=== PATIENT | male | born 1955 | race Hispanic/Latino ===

== ENCOUNTER 2019-07-11 04:55 | Inpatient (IN) | payer OTHER ==
[2019-07-11 05:58] LABS: Basophils % (Auto) 0.4 % (0.0-1.8); Eosinophils % (Auto) 0.4 % (0.0-4.3); Hematocrit 26.8 % (35.5-45.6); Hemoglobin 9.1 gm/dl (11.8-15.2); Lymphocytes # (Auto) 0.8 K/mm3 (1.2-5.4); Lymphocytes % (Auto) 10.1 % (13.4-35.0); Mean Corpuscular HGB Conc 34 % (32-34); Mean Corpuscular Volume 87 fl (84-94); Monocytes # (Auto) 0.5 K/mm3 (0.0-0.8); Monocytes % (Auto) 6.3 % (0.0-7.3); Platelet Count 418 K/mm3 (140-440); Red Blood Count 3.07 M/mm3 (3.65-5.03); Red Cell Distribution Width 14.7 % (13.2-15.2)
[2019-07-11 07:32] LABS: BUN/Creatinine Ratio 22; Blood Urea Nitrogen 13 mg/dL (9-20); Calcium 7.9 mg/dL (8.4-10.2); Hemolysis Index 2
[2019-07-11] MEDS ORDERED: NACL 0.9% 500 ML 500 ML IV ONE (08:46)
[2019-07-11] MEDS ORDERED: MORPHINE IV ONE (08:46)
[2019-07-11] MEDS ORDERED: CLEOCIN 600 MG/50 mL 600 MG/50 ML BAG IV ONE (08:46)
--- NOTE | 2019-07-11 08:48 | Emergency Department Report ---
ED General Adult HPI - General Chief complaint: Skin Rash Stated complaint: BACK PAIN/RASH X 2WKS Time Seen by Provider: 07/11/19 07:42 Source: patient, EMS (ems notes not available at time of chart dictation), RN notes reviewed, old records reviewed Mode of arrival: Stretcher Limitations: No Limitations - History of Present Illness Initial comments: This is a 63-year-old gentleman. I have evaluated this patient in the past. Please see my note from 06/28/2019. The patient presents to the ER today with complaint of worsening bilateral lower extremity rash, lower extremity pain, malaise, fatigue, and persistent left-sided sacroiliac pain. He denies hematemesis and bright red blood per rectum. He believes he's been coughing up some blood occasionally. He denies dysuria. His lower extremity pain is sharp and throbbing, aching, increases with palpation and decreases with rest. There is no abdominal pain. He feels like his symptoms are getting worse. -: Gradual, week(s) Location: buttocks, left, right, lower extremity Severity scale (0 -10): 10 Quality: aching Consistency: constant Improves with: rest Worsens with: movement - Related Data Previous Rx's Medication Instructions Recorded Last Taken Type Diclofenac Sodium 50 mg PO Q8H PRN #15 tablet. 06/28/19 Unknown Rx Allergies Allergy/AdvReac Type Severity Reaction Status Date / Time No Known Allergies Allergy Unverified 06/28/19 02:43 ED Review of Systems ROS: Stated complaint: BACK PAIN/RASH X 2WKS Other details as noted in HPI Constitutional: fever (patient questions fever, although, he is not sure), malaise, weakness Eyes: denies: eye discharge ENT: epistaxis Respiratory: cough Cardiovascular: denies: chest pain Gastrointestinal: denies: hematemesis, melena, hematochezia Genitourinary: denies: dysuria Musculoskeletal: arthralgia, myalgia Skin: rash, lesions Neurological: weakness Psychiatric: anxiety ED Past Medical Hx - Past Medical History Previous Medical History?: No - Surgical History Past Surgical History?: No - Social History Smoking Status: Current Every Day Smoker Substance Use Type: None - Medications Home Medications: Home Medications Medication Instructions Recorded Confirmed Last Taken Type Diclofenac Sodium 50 mg PO Q8H PRN #15 tablet. 06/28/19 Unknown Rx ED Physical Exam - General Limitations: No Limitations General appearance: alert, anxious, in distress - Head Head exam: Present: atraumatic, normocephalic - Eye Eye exam: Present: normal appearance, EOMI. Absent: nystagmus - ENT ENT exam: Present: normal exam, normal orophraynx, mucous membranes moist, normal external ear exam - Neck Neck exam: Present: normal inspection, full ROM. Absent: tenderness, meningismus - Respiratory Respiratory exam: Present: normal lung sounds bilaterally. Absent: respiratory distress - Cardiovascular Cardiovascular Exam: Present: regular rate, normal rhythm, normal heart sounds. Absent: bradycardia, tachycardia, irregular rhythm, systolic murmur, diastolic murmur, rubs, gallop - GI/Abdominal GI/Abdominal exam: Present: soft. Absent: distended, tenderness, guarding, rebound, rigid, pulsatile mass - Rectal Rectal exam: Present: normal inspection, normal rectal tone, heme (-) stool, other (chaperoned by nurse Lou Bello). Absent: black stool, bloody stool, fecal impaction - Extremities Exam Extremities exam: Present: tenderness, other (2+ pulses noted in the bilateral upper, lower extremities. The muscular compartments are soft. The pelvis is stable. There is reproducible left-sided sacroiliac joint tenderness. Multiple excoriated tender lesions noted on the bilateral lower extremities. These are tender and nonblanching. There is some surrounding erythema. There is lower extremity edema noted.). Absent: normal inspection - Back Exam Back exam: Present: normal inspection, full ROM, paraspinal tenderness - Neurological Exam Neurological exam: Present: alert, other (Extraocular movements intact. Tongue midline. No facial droop. Facial sensation intact to light touch in the V1, V2, V3 distribution bilaterally. 5 and 5 strength in 4 extremities.. Sensation is intact to light touch in 4 extremities.) - Psychiatric Psychiatric exam: Present: anxious - Skin Skin exam: Present: warm, rash, erythema ED Course Vital Signs 07/11/19 07/11/19 07/11/19 05:17 06:08 06:16 Temperature 98.9 F Pulse Rate 93 H 90 Respiratory 20 20 20 Rate Blood Pressure 101/58 Blood Pressure 98/58 [Right] O2 Sat by Pulse 94 94 96 Oximetry 07/11/19 07/11/19 08:16 08:47 Temperature 98.1 F 99.9 F H Pulse Rate 90 Respiratory 17 Rate Blood Pressure Blood Pressure 103/57 [Right] O2 Sat by Pulse 97 Oximetry ED Medical Decision Making - Lab Data Result diagrams: 07/11/19 05:39 07/11/19 05:39 Vital Signs 07/11/19 07/11/19 07/11/19 05:17 06:08 06:16 Temperature 98.9 F Pulse Rate 93 H 90 Respiratory 20 20 20 Rate Blood Pressure 101/58 Blood Pressure 98/58 [Right] O2 Sat by Pulse 94 94 96 Oximetry 07/11/19 07/11/19 08:16 08:47 Temperature 98.1 F 99.9 F H Pulse Rate 90 Respiratory 17 Rate Blood Pressure Blood Pressure 103/57 [Right] O2 Sat by Pulse 97 Oximetry Lab Results 07/11/19 07/11/19 Range/Units 05:39 05:39 WBC 7.7 (4.5-11.0) K/mm3 RBC 3.07 L (3.65-5.03) M/mm3 Hgb 9.1 L (11.8-15.2) gm/dl Hct 26.8 L (35.5-45.6) % MCV 87 (84-94) fl MCH 30 (28-32) pg MCHC 34 (32-34) % RDW 14.7 (13.2-15.2) % Plt Count 418 (140-440) K/mm3 Lymph % (Auto) 10.1 L (13.4-35.0) % [place] % (Auto) 6.3 (0.0-7.3) % Eos % (Auto) 0.4 (0.0-4.3) % Baso % (Auto) 0.4 (0.0-1.8) % Lymph # 0.8 L (1.2-5.4) K/mm3 [place] # 0.5 (0.0-0.8) K/mm3 Eos # 0.0 (0.0-0.4) K/mm3 Baso # 0.0 (0.0-0.1) K/mm3 Seg Neutrophils % 82.8 H (40.0-70.0) % Seg Neutrophils # 6.4 (1.8-7.7) K/mm3 Sodium 129 L (137-145) mmol/L Potassium 4.0 (3.6-5.0) mmol/L Chloride 94.7 L (98-107) mmol/L Carbon Dioxide 24 (22-30) mmol/L Anion Gap 14 mmol/L BUN 13 (9-20) mg/dL Creatinine 0.6 L (0.8-1.5) mg/dL Estimated GFR > 60 ml/min BUN/Creatinine Ratio 22 % Glucose 119 H (75-100) mg/dL Calcium 7.9 L (8.4-10.2) mg/dL - EKG Data -: EKG Interpreted by Ga EKG shows normal: sinus rhythm Rate: normal - EKG Data 07/11/19 09:47 There is no prior EKG available for comparison. This is a sinus rhythm, with premature ventricular complex, there is low voltage, the QTC is within normal l imits, there appears to be a sinus polyp, this EKG is abnormal, there is no prior for comparison, the EKG is not consistent with ST elevation myocardial infarction. - Radiology Data Radiology results: report reviewed, image reviewed Print Report Referring Physician: FRANCIA JOLLY Patient Name: LUCRETIA BROWN Date of : 1955 Sex: Male Report Date: 2019-07-11 Report Status: Finalized Findings [facility] [address] [place] [address] XRay Report Signed Patient: LUCRETIA BROWN MR#: [id number] 6 : 1955 Acct:[id number] Age/Sex: 63 / M ADM Date: 07/11/19 Loc: ED Attending Dr: Ordering Physician: FRANCIA JOLLY MD Date of Service: 07/11/19 Procedure(s): XR chest 1V ap Accession Number(s): [id number] cc: FRANCIA JOLLY MD Fluoro Time In Minutes: CHEST 1 VIEW INDICATION: hemoptysis. COMPARISON: 06/28/2019 FINDINGS: Support devices: None. Heart: Within normal limits. Lungs/Pleura: Minor discoid atelectasis has developed at the lung bases, otherwise, the lungs are clear. No pleural effusion or pneumothorax. Additional findings: None. IMPRESSION: No acute findings. Minor bibasilar atelectatic changes. Signer Name: Yehuda King Jr, MD Signed: 07/11/2019 8:59 AM Workstation Name: [id number] Transcribed By: TTR Dictated By: YEHUDA KING JR, MD Electronically Authenticated By: YEHUDA KING JR, MD Signed Date/Time: 07/11/19858 D D/ 7 TD/TT: - Medical Decision Making Differential diagnosis, including not limited to: Vasculitis, connective tissue disease, lupus Assessment and plan: 63-year-old gentleman, with persistent and worsening tender nonblanching bilateral lower extremity rash, there may be a component of superinfection, low-grade temperature, resolved hypotension, now with decreasing hemoglobin, hematocrit, no obvious source of bleeding, and also hyponatremia. Concerning for systemic illness, such as rheumatologic condition versus vasculitis. We will treat with IV fluids, pain medicine, steroids, empiric antibiotic therapy. Has appropriate pulses in the lower extremities, therefore, clinically do not suspect arterial insufficiency, or DVT, but we will obtain dedicated ultrasound imaging of the bilateral lower extremity's. X-ray of the chest is unremarkable. Additional appropriate inpatient screening laboratory studies ordered, and we will defer to inpatient team to follow these up. Case will be transferred to Hospital physician, Dr. Bowie, and we will defer to her to follow-up on the additional laboratory studies. Critical care attestation.: If time is entered above; I have spent that time in minutes in the direct care of this critically ill patient, excluding procedure time. ED Disposition Clinical Impression: Vasculitis, Hyponatremia, Rash Disposition: OP ADMIT IP TO THIS HOSP Is pt being admited?: Yes Condition: Fair Referrals: PRIMARY CARE, [Primary Care Provider] - 3-5 Days
--- NOTE | 2019-07-11 09:03 | XRay Report ---
CHEST 1 VIEW INDICATION: hemoptysis. COMPARISON: 06/28/2019 FINDINGS: Support devices: None. Heart: Within normal limits. Lungs/Pleura: Minor discoid atelectasis has developed at the lung bases, otherwise, the lungs are cehly ar. No pleural effusion or pneumothorax. Additional findings: None. IMPRESSION: No acute findings. Minor bibasilar atelectatic changes. Signer Name: Yehuda King Jr, MD Signed: 07/11/2019 8:59 AM Workstation Name: [id number]
[2019-07-11] MEDS ORDERED: SOLU-Medrol IV ONE (09:27)
[2019-07-11 09:53] LABS: INR 1.22 (0.87-1.13)
[2019-07-11 09:54] LABS: Partial Thromboplastin Time 34.5 Sec. (24.2-36.6)
[2019-07-11 09:56] LABS: Bilirubin,Urine NEG (Negative); Blood,Urine LG (Negative); Color,Urine Yellow (Yellow); Mucus,Urine FEW /HPF; Urobilinogen,Urine < 2.0 mg/dL (<2.0)
[2019-07-11 09:59] LABS: RBC,Urine > 182.0 /HPF (0.0-6.0)
[2019-07-11 11:26] LABS: Alanine Aminotransferase 13 units/L (7-56); Albumin 2.6 g/dL (3.9-5); Uric Acid 3.8 mg/dL (3.5-7.6)
[2019-07-11 11:29] LABS: Bilirubin,Direct < 0.2 mg/dL (0-0.2)
--- NOTE | 2019-07-11 12:58 | Vascular Lab Report ---
DUPLEX DOPPLER LOWER EXTREMITY VEINS, BILATERAL INDICATION / CLINICAL INFORMATION: Bilateral lower extremity pain. TECHNIQUE: Duplex doppler imaging was performed through the veins of both lower extremities using venous endy nora and other maneuvers. COMPARISON: None available. FINDINGS: RIGHT COMMON FEMORAL VEIN: Negative. RIGHT FEMORAL VEIN: Negative. RIGHT POPLITEAL VEIN: Negative. RIGHT CALF VEINS: Negative. LEFT COMMON FEMORAL VEIN: Negative. LEFT FEMORAL VEIN: Negative. LEFT POPLITEAL VEIN: Negative. LEFT CALF VEINS: Negative. ADDITIONAL FINDINGS: None. IMPRESSION: 1. No sonographic evidence for DVT in either lower extremity. Signer Name: Manolo Viramontes MD Signed: 07/11/2019 12:54 PM Workstation Name: [id number]
--- NOTE | 2019-07-11 13:01 | Vascular Lab Report ---
DUPLEX DOPPLER LOWER EXTREMITY ARTERIAL, BILATERAL INDICATION / CLINICAL INFORMATION: Bilateral lower extremity pain. TECHNIQUE: Arterial duplex examination of both lower extremities performed using B-mode, color flow and spectral Doppler assessment. FINDINGS: RIGHT: Common Femoral Artery: PSV 131 cm/sec. Triphasic waveform. Proximal SFA: PSV 86 cm/sec. Triphasic waveform. Mid SFA: PSV 89 cm/sec. Triphasic waveform. Distal SFA: PSV 85 cm/sec. Triphasic waveform. Popliteal artery: PSV 93 cm/sec. Triphasic waveform. Posterior tibial artery: PSV 73 cm/sec. Triphasic waveform. Dorsalis Pedis Artery: PSV 74 cm/sec. Biphasic waveform. LEFT: Common Femoral Artery: PSV 102 cm/sec. Triphasic waveform. Proximal SFA: PSV 70 cm/sec. Triphasic waveform. Mid SFA: PSV 86 cm/sec. Triphasic waveform. Distal SFA: PSV 82 cm/sec. Triphasic waveform. Popliteal artery: PSV 96 cm/sec. Triphasic waveform. Posterior tibial artery: PSV 77 cm/sec. Biphasic waveform. Dorsalis Pedis Artery: PSV 82 cm/sec. Triphasic waveform. Right CLARE: Not obtained Left CLARE: Not obtained IMPRESSION: 1. No significant lower extremity peripheral artery disease. Ankle-Brachial Index (CLARE): - Calcified arteries > 1.4 - Normal = 0.9-1.4 - Mild PAD = 0.7-0.89 - Moderate PAD = 0.51-0.69 - Severe PAD < 0.5 Doppler Waveform: - Triphasic is normal. - Biphasic is abnormal if clear transition from triphasic signal along vascular tree. - Monophasic is abnormal. Signer Name: Manolo Viramontes MD Signed: 07/11/2019 12:56 PM Workstation Name: [email or web address] [id number]
--- NOTE | 2019-07-11 13:29 | History and Physical Report ---
History of Present Illness Date of examination: 07/11/19 Date of admission: 07/11/19 09:52 Chief complaint: Low back pain and generalized body rash mainly, lower extremity for the last 2 weeks History of present illness: 63-year-old male patient with significant past medical history of chronic low back pain not on any medications presented to the emergency room with history of low back pain. Pain, generalized rash mainly in the lower extremity for the last 2 weeks. Patient also complains intermittent fevers Patient took some ewmy-kfu-rlewatc medications with no response Patient denies any chest pain or shortness of breath, Denies headache or dizzi ness. Complaints of mild cough and congestion No urinary symptoms, Pain in the Lower extremities , venous Doppler negative for DVT Past History Past Medical History: other (chronic pain syndrome) Past Surgical History: appendectomy Social history: lives with family, smoking, alcohol abuse Family history: hypertension Medications and Allergies Allergies Allergy/AdvReac Type Severity Reaction Status Date / Time No Known Allergies Allergy Verified 07/11/19 13:50 Home Medications Medication Instructions Recorded Confirmed Last Taken Type No Known Home Medications [No 07/11/19 07/11/19 Unknown History Reported Home Medications] Review of Systems Constitutional: no weight loss, no weight gain Ears, nose, mouth and throat: no nasal congestion, no nasal discharge Cardiovascular: no chest pain, no orthopnea, no palpitations Respiratory: cough, no shortness of breath Gastrointestinal: no abdominal pain, no nausea, no vomiting Genitourinary Male: no dysuria, no hematuria Musculoskeletal: low back pain, other (hip pain) Integumentary: rash, lesions Neurological: no seizures, no syncope, no tremors Psychiatric: no anxiety, no depression Endocrine: no cold intolerance, no heat intolerance Hematologic/Lymphatic: no easy bruising, no easy bleeding Allergic/Immunologic: no urticaria, no allergic rhinitis Exam - Constitutional Vitals: Temp Pulse Resp BP Pulse Ox 98.8 F 86 20 105/68 99 07/11/19 11:47 07/11/19 11:47 07/11/19 11:47 07/11/19 11:47 07/11/19 11:47 General appearance: Present: mild distress, well-nourished - EENT Eyes: Present: PERRL, EOM intact - Neck Neck: Present: supple, normal ROM - Respiratory Respiratory effort: normal Respiratory: bilateral: diminished, negative: rales, rhonchi, wheezing - Cardiovascular Rhythm: regular Heart Sounds: Present: S1 & S2 - Extremities Extremities: no ischemia, No edema, abnormal ( Erythematous rash on her lower extremities) - Abdominal General gastrointestinal: Present: soft, non-tender, non-distended, normal bowel sounds - Integumentary Integumentary: Present: clear, warm, rash - Musculoskeletal Musculoskeletal: strength equal bilaterally, generalized weakness - Psychiatric Psychiatric: appropriate mood/affect, cooperative - Neurologic Neurologic: CNII-XII intact, moves all extremities Results - Labs CBC & Chem 7: 07/11/19 05:39 07/11/19 05:39 Labs: Abnormal lab results 07/11/19 07/11/19 07/11/19 Range/Units 05:39 05:39 09:02 RBC 3.07 L (3.65-5.03) M/mm3 Hgb 9.1 L (11.8-15.2) gm/dl Hct 26.8 L (35.5-45.6) % Lymph % (Auto) 10.1 L (13.4-35.0) % Lymph # 0.8 L (1.2-5.4) K/mm3 Seg Neutrophils % 82.8 H (40.0-70.0) % PT 15.1 H (12.2-14.9) Sec. INR 1.22 H (0.87-1.13) Sodium 129 L (137-145) mmol/L Chloride 94.7 L (98-107) mmol/L Creatinine 0.6 L (0.8-1.5) mg/dL Glucose 119 H (75-100) mg/dL Calcium 7.9 L (8.4-10.2) mg/dL Total Creatine Kinase (55-170) units/L C-Reactive Protein (0.00-1.30) mg/dL Albumin (3.9-5) g/dL Urine Creatinine (0.1-20.0) mg/dL 07/11/19 07/11/19 Range/Units 09:02 Unknown RBC (3.65-5.03) M/mm3 Hgb (11.8-15.2) gm/dl Hct (35.5-45.6) % Lymph % (Auto) (13.4-35.0) % Lymph # (1.2-5.4) K/mm3 Seg Neutrophils % (40.0-70.0) % PT (12.2-14.9) Sec. INR (0.87-1.13) Sodium (137-145) mmol/L Chloride (98-107) mmol/L Creatinine (0.8-1.5) mg/dL Glucose (75-100) mg/dL Calcium (8.4-10.2) mg/dL Total Creatine Kinase 53 L (55-170) units/L C-Reactive Protein 16.50 H (0.00-1.30) mg/dL Albumin 2.6 L (3.9-5) g/dL Urine Creatinine 70.0 H (0.1-20.0) mg/dL Assessment and Plan --Febrile illness; rule out sepsis Antipyretics, IV fluids, empiric antibiotics Urine and blood cultures --Rash all over the body mainly in the lower extremities; Patient has back pain/fever and rash Possible autoimmune, vasculitis Steroids, antihistamines, ID consult VIKY,ANCA, complement 3 and 4 requested --Hyponatremia; IV hydration Closely monitor electrolytes --Chronic lower back and hip pain; X-rays revealed no acute abnormality noted Pain meds, physical therapy occupational therapy --Chronic pain syndrome; supportive care and pain medications --Moderate to severe malnutrition/hypoalbuminemia Nutrition supplements and supportive care --DVT prophylaxis; Lovenox Monitor clinically and adjust the management as needed Plan of care is reviewed with the patient fiance at the bedside And his nurse
[2019-07-11] MEDS: SOLU-Medrol IV SCH ×2 (16:01→21:01)
[2019-07-11] MEDS: NACL 0.9% 1000 ML 1,000 ML IV SCH (20:57)
[2019-07-11] MEDS ORDERED: TYLENOL PO PRN (21:00)
[2019-07-11] MEDS: LOVENOX SUB-Q SCH (21:01)
[2019-07-11] MEDS: CLEOCIN PO SCH (21:01)
[2019-07-11] MEDS ORDERED: MAXIPIME/NS 1 GM/100 ML 1 GM/100 ML BAG IV SCH (22:00)
[2019-07-12 05:26] LABS: Basophils % (Auto) 0.1 % (0.0-1.8); Hematocrit 29.7 % (35.5-45.6); Hemoglobin 10.1 gm/dl (11.8-15.2); Lymphocytes # (Auto) 0.7 K/mm3 (1.2-5.4); Lymphocytes % (Auto) 12.5 % (13.4-35.0); Mean Corpuscular HGB Conc 34 % (32-34); Mean Corpuscular Volume 87 fl (84-94); Monocytes # (Auto) 0.1 K/mm3 (0.0-0.8); Monocytes % (Auto) 2.5 % (0.0-7.3); Platelet Count 492 K/mm3 (140-440); Red Blood Count 3.41 M/mm3 (3.65-5.03); Red Cell Distribution Width 14.4 % (13.2-15.2)
[2019-07-12 05:39] LABS: BUN/Creatinine Ratio 27; Blood Urea Nitrogen 16 mg/dL (9-20); Hemolysis Index 4
[2019-07-12] MEDS: SOLU-Medrol IV SCH ×3 (06:04→21:20)
[2019-07-12] MEDS: CLEOCIN PO SCH ×4 (09:37→21:20)
[2019-07-12] MEDS: PROTONIX PO SCH (09:37)
--- NOTE | 2019-07-12 11:47 | Progress Note ---
Assessment and Plan Assessment and plan: --SIRS :Febrile illness; rule out sepsis Antipyretics, IV fluids, empiric antibiotics Urine and blood cultures --Rash all over the body mainly in the lower extremities; Patient has back pain/fever and rash Possible autoimmune, vasculitis Steroids, antihistamines, ID consult VIKY,ANCA, complement 3 and 4 requested --Hyponatremia; IV hydration Mild improvement Closely monitor electrolytes --Chronic lower back and hip pain; X-rays revealed no acute abnormality noted Pain meds, physical therapy occupational therapy --Chronic pain syndrome; supportive care and pain medications --Moderate to severe malnutrition/hypoalbuminemia Nutrition supplements and supportive care --DVT prophylaxis; Lovenox Monitor clinically and adjust the management as needed Plan of care is reviewed with the patient fiance at the bedside And his nurse History Interval history: Patient seen and examined medical records reviewed Intermittent fevers, back pain Complaints of generalized weakness, mild hypertension Alert awake oriented 3, Vital signs reviewed Hospitalist Physical - Constitutional Vitals: Temp Pulse Resp BP Pulse Ox 97.7 F 72 16 82/51 97 07/12/19 05:16 07/11/19 21:35 07/12/19 05:16 07/12/19 05:16 07/11/19 21:35 General appearance: Present: no acute distress, well-nourished - EENT Eyes: Present: PERRL, EOM intact - Neck Neck: Present: supple, normal ROM - Respiratory Respiratory effort: normal Respiratory: bilateral: diminished, negative: rales, rhonchi, wheezing - Cardiovascular Rhythm: regular Heart Sounds: Present: S1 & S2 - Extremities Extremities: no ischemia, abnormal (rash lower extremities) - Abdominal General gastrointestinal: soft, non-tender, non-distended, normal bowel sounds - Integumentary Integumentary: Present: clear, warm - Psychiatric Psychiatric: appropriate mood/affect, cooperative - Neurologic Neurologic: CNII-XII intact, moves all extremities Results - Labs CBC & Chem 7: 07/12/19 04:27 07/12/19 04:27 Labs: Laboratory Last Values WBC 5.5 K/mm3 (4.5-11.0) 07/12/19 04:27 RBC 3.41 M/mm3 (3.65-5.03) L 07/12/19 04:27 Hgb 10.1 gm/dl (11.8-15.2) L 07/12/19 04:27 Hct 29.7 % (35.5-45.6) L 07/12/19 04:27 MCV 87 fl (84-94) 07/12/19 04:27 MCH 30 pg (28-32) 07/12/19 04:27 MCHC 34 % (32-34) 07/12/19 04:27 RDW 14.4 % (13.2-15.2) 07/12/19 04:27 Plt Count 492 K/mm3 (140-440) H 07/12/19 04:27 Lymph % (Auto) 12.5 % (13.4-35.0) L 07/12/19 04:27 [place] % (Auto) 2.5 % (0.0-7.3) 07/12/19 04:27 Eos % (Auto) 0.0 % (0.0-4.3) 07/12/19 04:27 Baso % (Auto) 0.1 % (0.0-1.8) 07/12/19 04:27 Lymph # 0.7 K/mm3 (1.2-5.4) L 07/12/19 04:27 [place] # 0.1 K/mm3 (0.0-0.8) 07/12/19 04:27 Eos # 0.0 K/mm3 (0.0-0.4) 07/12/19 04:27 Baso # 0.0 K/mm3 (0.0-0.1) 07/12/19 04:27 Seg Neutrophils % 84.9 % (40.0-70.0) H 07/12/19 04:27 Seg Neutrophils # 4.7 K/mm3 (1.8-7.7) 07/12/19 04:27 ESR 71 mm/Hr (0-20) 07/11/19 09:02 PT 15.1 Sec. (12.2-14.9) H 07/11/19 09:02 INR 1.22 (0.87-1.13) H 07/11/19 09:02 APTT 34.5 Sec. (24.2-36.6) 07/11/19 09:02 Sodium 132 mmol/L (137-145) L 07/12/19 04:27 Potassium 3.8 mmol/L (3.6-5.0) 07/12/19 04:27 Chloride 96.9 mmol/L (98-107) L 07/12/19 04:27 Carbon Dioxide 26 mmol/L (22-30) 07/12/19 04:27 Anion Gap 13 mmol/L 07/12/19 04:27 BUN 16 mg/dL (9-20) 07/12/19 04:27 Creatinine 0.6 mg/dL (0.8-1.5) L 07/12/19 04:27 Estimated GFR > 60 ml/min 07/12/19 04:27 BUN/Creatinine Ratio 27 % 07/12/19 04:27 Glucose 238 mg/dL (75-100) H 07/12/19 04:27 Lactic Acid 0.80 mmol/L (0.7-2.0) 07/11/19 09:02 Uric Acid 3.8 mg/dL (3.5-7.6) 07/11/19 09:02 Calcium 8.0 mg/dL (8.4-10.2) L 07/12/19 04:27 Magnesium 2.20 mg/dL (1.7-2.3) 07/12/19 04:27 Total Bilirubin 0.30 mg/dL (0.1-1.2) 07/11/19 09:02 Direct Bilirubin < 0.2 mg/dL (0-0.2) 07/11/19 09:02 Indirect Bilirubin 0.1 mg/dL 07/11/19 09:02 AST 23 units/L (5-40) 07/11/19 09:02 ALT 13 units/L (7-56) 07/11/19 09:02 Alkaline Phosphatase 105 units/L (35-129) 07/11/19 09:02 Total Creatine Kinase 53 units/L (55-170) L 07/11/19 09:02 Troponin T < 0.010 ng/mL (0.00-0.029) 07/11/19 09:02 C-Reactive Protein 16.50 mg/dL (0.00-1.30) H 07/11/19 09:02 Total Protein 7.0 g/dL (6.3-8.2) 07/11/19 09:02 Albumin 2.6 g/dL (3.9-5) L 07/11/19 09:02 Albumin/Globulin Ratio 0.6 % 07/11/19 09:02 TSH 1.950 mlU/mL (0.270-4.200) 07/11/19 09:02 Urine Color Yellow (Yellow) 07/11/19 Unknown Urine Turbidity Slightly-cloudy (Clear) 07/11/19 Unknown Urine pH 6.0 (5.0-7.0) 07/11/19 Unknown Ur Specific [place] 1.011 (1.003-1.030) 07/11/19 Unknown Urine Protein 30 mg/dl mg/dL (Negative) 07/11/19 Unknown Urine Glucose (UA) Neg mg/dL (Negative) 07/11/19 Unknown Urine Ketones Neg mg/dL (Negative) 07/11/19 Unknown Urine Blood Lg (Negative) 07/11/19 Unknown Urine Nitrite Neg (Negative) 07/11/19 Unknown Urine Bilirubin Neg (Negative) 07/11/19 Unknown Urine Urobilinogen < 2.0 mg/dL (<2.0) 07/11/19 Unknown Ur Leukocyte Esterase Neg (Negative) 07/11/19 Unknown Urine WBC (Auto) 6.0 /HPF (0.0-6.0) 07/11/19 Unknown Urine RBC (Auto) > 182.0 /HPF (0.0-6.0) 07/11/19 Unknown U Epithel Cells (Auto) < 1.0 /HPF (0-13.0) 07/11/19 Unknown Urine Mucus Few /HPF 07/11/19 Unknown Urine Osmolality 329 Mosm/kg 07/11/19 Unknown Urine Creatinine 70.0 mg/dL (0.1-20.0) H 07/11/19 Unknown Urine Sodium 32 mmol/L 07/11/19 Unknown Active Medications - Current Medications Current Medications: Generic Name Dose Route Start Last Admin Trade Name Freq PRN Reason Stop Dose Admin Acetaminophen 650 mg 07/11/19 21:00 Tylenol PO Q4H PRN Pain, Mild (1-3) Clindamycin HCl 300 mg 07/11/19 22:00 07/12/19 09:37 Cleocin PO 300 mg QID TORITO Administration Diphenhydramine HCl 25 mg 07/11/19 18:34 Benadryl PO Q8H PRN Itching Enoxaparin Sodium 40 mg 07/11/19 22:00 07/11/19 21:01 Lovenox SUB-Q 40 mg QDAY@2200 TORITO Administration Sodium Chloride 1,000 mls @ 100 mls/hr 07/11/19 14:00 07/11/19 20:57 Nacl 0.9% 1000 Ml IV 100 mls/hr DIRECT TORITO Administration Methylprednisolone Sodium Succinate 60 mg 07/11/19 14:00 07/12/19 06:04 Solu-Medrol IV 60 mg Q8HR TORITO Administration Morphine Sulfate 2 mg 07/11/19 21:00 Morphine IV Q4H PRN Pain, Moderate (4-6) Oxycodone/Acetaminophen 1 tab 07/11/19 21:00 Percocet 5/325 PO Q6H PRN Pain, Moderate (4-6) Pantoprazole Sodium 40 mg 07/12/19 10:00 07/12/19 09:37 Protonix PO 40 mg QDAY TORITO Administration
[2019-07-12] MEDS ORDERED: NACL 0.9% 500 ML 500 ML IV ONE (12:00)
--- NOTE | 2019-07-12 12:07 | Consultation ---
History of Present Illness - Reason for Consult Consult date: 07/12/19 - History of Present Illness 63 yo M PMhx oneyda presented to the hosptial for an acute worsening of his chronic lower back pain. He also complains of a rash in his lower extremities which has been present for the past 2 weeks. He complains of intermittent subjective fevers during this time as well. He otherwise denies chills, night sweats, diarrhea, nausea, vomiting. The rash is painful, and a Doppler was negative for DVT in the legs. He was recently evaluated for similar symptoms and dicharged as a rash. He notes the symptoms began with a purpuric discoloration diffusely across his lower body inclusive of his legs, feet, and buttocks. The purpuric changes resolved over time but eventually ulcerated to wind up as what we see today. he notes significant pain on palpation, even light touch. He complains of fevers, L hip pain as well. He has no exposure to natural bodies of water, no recent travel. Denies tick or insect bites, but was recently working underneath their house. Febrile on admission to 102.1. Currently receiving clindamycin. Normal white count. Blood cultures pending. Imaging personally reviewed: Bilateral duplex: negative for DVT in either extremity. Review of Systems: Bold if positive, otherwise negative General: fevers, chills, rigors HEENT: visual disturbance, diplopia, eye pain Respiratory: cough, sputum, hemoptysis, shortness of breath Cardiovascular: chest pain, syncope Gastrointestinal: nausea, vomiting, diarrhea, abdominal pain Genitourinary: dysuria, hematuria, flank pain Musculoskeletal: neck pain, back pain, joint pain, edema Neurologic: headaches, seizures Hematologic: easy bruising or bleeding Endocrine: night sweats, acute weight loss Skin: rash, jaundice, redness Psychiatric: suicidal, homicidal ideation Past History Past Medical History: other (chronic pain syndrome) Past Surgical History: appendectomy Social history: lives with family, smoking, alcohol abuse Family history: hypertension Medications and Allergies Allergies Allergy/AdvReac Type Severity Reaction Status Date / Time No Known Allergies Allergy Verified 07/11/19 13:50 Home Medications Medication Instructions Recorded Confirmed Last Taken Type No Known Home Medications [No 07/11/19 07/11/19 Unknown History Reported Home Medications] Active Meds: Active Medications Acetaminophen (Tylenol) 650 mg PO Q4H PRN PRN Reason: Pain, Mild (1-3) Clindamycin HCl (Cleocin) 300 mg PO QID [facility] Last Admin: 07/12/19 09:37 Dose: 300 mg Documented by: Diphenhydramine HCl (Benadryl) 25 mg PO Q8H PRN PRN Reason: Itching Enoxaparin Sodium (Lovenox) 40 mg SUB-Q QDAY@2200 [facility] Last Admin: 07/11/19 21:01 Dose: 40 mg Documented by: Sodium Chloride (Nacl 0.9% 1000 Ml) 1,000 mls @ 100 mls/hr IV DIRECT [facility] Last Admin: 07/11/19 20:57 Dose: 100 mls/hr Documented by: Sodium Chloride (Nacl 0.9% 500 Ml) 500 mls @ 999 mls/hr IV ONCE ONE Stop: 07/12/19 12:30 Methylprednisolone Sodium Succinate (Solu-Medrol) 60 mg IV Q8HR [facility] Last Admin: 07/12/19 06:04 Dose: 60 mg Documented by: Morphine Sulfate (Morphine) 2 mg IV Q4H PRN PRN Reason: Pain, Moderate (4-6) Oxycodone/Acetaminophen (Percocet 5/325) 1 tab PO Q6H PRN PRN Reason: Pain, Moderate (4-6) Pantoprazole Sodium (Protonix) 40 mg PO QDAY [facility] Last Admin: 07/12/19 09:37 Dose: 40 mg Documented by: Physical Examination - Physical Exam Narrative exam: Constitutional: Alert, cooperative. No acute distress Head, Ears, Nose: Normocephalic, atraumatic. External ears, nose normal Eyes: Conjunctivae/corneas clear. No icterus. No ptosis. Neck: Supple, no meningeal signs Oral: dentition fair, no thrush Cardiovascular: S1, S2 normal. Respiratory: Good air entry, clear to auscultation bilaterally GI: Soft, non-tender; bowel sounds normal. No peritoneal signs. Musculoskeletal: No pedal edema, no cyanosis. Skin: Bilateral legs dressed. Pictures in chart noted. has additional pictures on her phone. Hem/Lymphatic: No palpable cervical or supraclavicular nodes. No lymphangitis Psych: Mood ok. Affect normal Neurological: Awake, alert, oriented. No gross abnormality - Constitutional Vitals: Vital Signs Temp Pulse Resp BP Pulse Ox 97.7 F 72 16 82/51 97 07/12/19 05:16 07/11/19 21:35 07/12/19 05:16 07/12/19 05:16 07/11/19 21:35 Temperature -Last 24 Hours Temperature 97.7 F Temperature 97.5 F Temperature 102.1 F Results - Labs CBC & Chem 7: 07/12/19 04:27 07/12/19 04:27 Labs: Abnormal lab results 07/12/19 07/12/19 Range/Units 04:27 04:27 RBC 3.41 L (3.65-5.03) M/mm3 Hgb 10.1 L (11.8-15.2) gm/dl Hct 29.7 L (35.5-45.6) % Plt Count 492 H (140-440) K/mm3 Lymph % (Auto) 12.5 L (13.4-35.0) % Lymph # 0.7 L (1.2-5.4) K/mm3 Seg Neutrophils % 84.9 H (40.0-70.0) % Sodium 132 L (137-145) mmol/L Chloride 96.9 L (98-107) mmol/L Creatinine 0.6 L (0.8-1.5) mg/dL Glucose 238 H (75-100) mg/dL Calcium 8.0 L (8.4-10.2) mg/dL Assessment and Plan Cultures: 07/11 BCx - pending A/P: 63 yo M PMhx lumbago admitted for bilateral ulcerative rash 1. SIRS - possible sepsis. Present with fevers and tachycardia, though he is extremely anxious. Likely secondary to ulcerative rash, whose etiology remains unclear. 2. Bilateral LE ulcerative rash - unclear etiology. He reports drainage and fevers, would continue clindamycin for now. Normal WBC. Consider obtaining a skin biopsy or dermatology consult. No clear exposures leading to rash. 3. Low back pain Recs: - continue clindamycin - obtain skin biopsy or dermatology consult. Ultimately needed to determine etiology of wounds. Thank you for the consult, we will continue to follow. Vitor Patel MD [facility] ([facility]) M: [phone] O: [phone] F: [phone]
[2019-07-12 18:52] LABS: Creatine Kinase MB 2.7 ng/mL (0.0-4.0)
[2019-07-12] MEDS: NACL 0.9% 1000 ML 1,000 ML IV SCH (19:13)
[2019-07-12] MEDS: PERCOCET 5/325 PO PRN (20:12)
[2019-07-12] MEDS: BENADRYL PO PRN (20:13)
[2019-07-12] MEDS: LOVENOX SUB-Q SCH (21:20)
[2019-07-12] MEDS ORDERED: NEURONTIN PO ONE (23:00)
[2019-07-13] MEDS ORDERED: NEURONTIN PO ONE (02:00)
[2019-07-13] MEDS: NACL 0.9% 1000 ML 1,000 ML IV SCH ×3 (04:45→19:39)
[2019-07-13] MEDS: SOLU-Medrol IV SCH ×3 (05:18→19:41)
[2019-07-13] MEDS: PROTONIX PO SCH (09:10)
[2019-07-13] MEDS: CLEOCIN PO SCH ×4 (09:10→23:29)
--- NOTE | 2019-07-13 15:16 | Progress Note ---
Assessment and Plan Assessment and plan: --SIRS :Febrile illness; rule out sepsis Antipyretics, --Gram-positive bacteremia; 1 and 2 positive for gram-positive cocci in clusters. IV Vancomycin, clindamycin cultures, supportive care --Rash all over the body mainly in the lower extremities; ID evaluation and recommendations noted and appreciated Continue antibiotics, wound care, low-dose steroids, Follow blood workup. --Hyponatremia; IV hydration Mild improvement Closely monitor electrolytes --Chronic lower back and hip pain; X-rays revealed no acute abnormality noted Pain meds, physical therapy occupational therapy --Chronic pain syndrome; supportive care and pain medications --Moderate to severe malnutrition/hypoalbuminemia Nutrition supplements and supportive care --DVT prophylaxis; Lovenox Monitor clinically and adjust the management as needed Plan of care is reviewed with the patient fiance at the bedside And his nurse Hospitalist Physical - Constitutional Vitals: Temp Pulse Resp BP Pulse Ox 97.6 F 67 20 99/54 96 07/13/19 12:01 07/13/19 12:01 07/13/19 12:01 07/13/19 12:01 07/13/19 12:01 General appearance: Present: no acute distress, well-nourished - EENT Eyes: Present: PERRL, EOM intact - Neck Neck: Present: supple, normal ROM - Respiratory Respiratory effort: normal Respiratory: bilateral: diminished, negative: rales, rhonchi, wheezing - Cardiovascular Rhythm: regular Heart Sounds: Present: S1 & S2 - Extremities Extremities: no ischemia, No edema Extremity abnormal: other (rash) - Abdominal General gastrointestinal: soft, non-tender, non-distended, normal bowel sounds - Integumentary Integumentary: Present: clear, warm - Psychiatric Psychiatric: appropriate mood/affect, cooperative - Neurologic Neurologic: CNII-XII intact, moves all extremities Results - Labs CBC & Chem 7: 07/12/19 04:27 07/12/19 04:27 Labs: Laboratory Last Values WBC 5.5 K/mm3 (4.5-11.0) 07/12/19 04:27 RBC 3.41 M/mm3 (3.65-5.03) L 07/12/19 04:27 Hgb 10.1 gm/dl (11.8-15.2) L 07/12/19 04:27 Hct 29.7 % (35.5-45.6) L 07/12/19 04:27 MCV 87 fl (84-94) 07/12/19 04:27 MCH 30 pg (28-32) 07/12/19 04:27 MCHC 34 % (32-34) 07/12/19 04:27 RDW 14.4 % (13.2-15.2) 07/12/19 04:27 Plt Count 492 K/mm3 (140-440) H 07/12/19 04:27 Lymph % (Auto) 12.5 % (13.4-35.0) L 07/12/19 04:27 [place] % (Auto) 2.5 % (0.0-7.3) 07/12/19 04:27 Eos % (Auto) 0.0 % (0.0-4.3) 07/12/19 04:27 Baso % (Auto) 0.1 % (0.0-1.8) 07/12/19 04:27 Lymph # 0.7 K/mm3 (1.2-5.4) L 07/12/19 04:27 [place] # 0.1 K/mm3 (0.0-0.8) 07/12/19 04:27 Eos # 0.0 K/mm3 (0.0-0.4) 07/12/19 04:27 Baso # 0.0 K/mm3 (0.0-0.1) 07/12/19 04:27 Seg Neutrophils % 84.9 % (40.0-70.0) H 07/12/19 04:27 Seg Neutrophils # 4.7 K/mm3 (1.8-7.7) 07/12/19 04:27 ESR 71 mm/Hr (0-20) 07/11/19 09:02 PT 15.1 Sec. (12.2-14.9) H 07/11/19 09:02 INR 1.22 (0.87-1.13) H 07/11/19 09:02 APTT 34.5 Sec. (24.2-36.6) 07/11/19 09:02 Sodium 132 mmol/L (137-145) L 07/12/19 04:27 Potassium 3.8 mmol/L (3.6-5.0) 07/12/19 04:27 Chloride 96.9 mmol/L (98-107) L 07/12/19 04:27 Carbon Dioxide 26 mmol/L (22-30) 07/12/19 04:27 Anion Gap 13 mmol/L 07/12/19 04:27 BUN 16 mg/dL (9-20) 07/12/19 04:27 Creatinine 0.6 mg/dL (0.8-1.5) L 07/12/19 04:27 Estimated GFR > 60 ml/min 07/12/19 04:27 BUN/Creatinine Ratio 27 % 07/12/19 04:27 Glucose 238 mg/dL (75-100) H 07/12/19 04:27 Lactic Acid 0.80 mmol/L (0.7-2.0) 07/11/19 09:02 Uric Acid 3.8 mg/dL (3.5-7.6) 07/11/19 09:02 Calcium 8.0 mg/dL (8.4-10.2) L 07/12/19 04:27 Magnesium 2.20 mg/dL (1.7-2.3) 07/12/19 04:27 Total Bilirubin 0.30 mg/dL (0.1-1.2) 07/11/19 09:02 Direct Bilirubin < 0.2 mg/dL (0-0.2) 07/11/19 09:02 Indirect Bilirubin 0.1 mg/dL 07/11/19 09:02 AST 23 units/L (5-40) 07/11/19 09:02 ALT 13 units/L (7-56) 07/11/19 09:02 Alkaline Phosphatase 105 units/L (35-129) 07/11/19 09:02 Total Creatine Kinase 24 units/L (55-170) L 07/12/19 18:13 CK-MB (CK-2) 2.7 ng/mL (0.0-4.0) 07/12/19 18:13 CK-MB (CK-2) Rel Index 11.2 (0-4) H 07/12/19 18:13 Troponin T < 0.010 ng/mL (0.00-0.029) 07/12/19 18:13 C-Reactive Protein 16.50 mg/dL (0.00-1.30) H 07/11/19 09:02 Total Protein 7.0 g/dL (6.3-8.2) 07/11/19 09:02 Albumin 2.6 g/dL (3.9-5) L 07/11/19 09:02 Albumin/Globulin Ratio 0.6 % 07/11/19 09:02 TSH 1.950 mlU/mL (0.270-4.200) 07/11/19 09:02 Urine Color Yellow (Yellow) 07/11/19 Unknown Urine Turbidity Slightly-cloudy (Clear) 07/11/19 Unknown Urine pH 6.0 (5.0-7.0) 07/11/19 Unknown Ur Specific [place] 1.011 (1.003-1.030) 07/11/19 Unknown Urine Protein 30 mg/dl mg/dL (Negative) 07/11/19 Unknown Urine Glucose (UA) Neg mg/dL (Negative) 07/11/19 Unknown Urine Ketones Neg mg/dL (Negative) 07/11/19 Unknown Urine Blood Lg (Negative) 07/11/19 Unknown Urine Nitrite Neg (Negative) 07/11/19 Unknown Urine Bilirubin Neg (Negative) 07/11/19 Unknown Urine Urobilinogen < 2.0 mg/dL (<2.0) 07/11/19 Unknown Ur Leukocyte Esterase Neg (Negative) 07/11/19 Unknown Urine WBC (Auto) 6.0 /HPF (0.0-6.0) 07/11/19 Unknown Urine RBC (Auto) > 182.0 /HPF (0.0-6.0) 07/11/19 Unknown U Epithel Cells (Auto) < 1.0 /HPF (0-13.0) 07/11/19 Unknown Urine Mucus Few /HPF 07/11/19 Unknown Urine Osmolality 329 Mosm/kg 07/11/19 Unknown Urine Creatinine 70.0 mg/dL (0.1-20.0) H 07/11/19 Unknown Urine Sodium 32 mmol/L 07/11/19 Unknown Active Medications - Current Medications Current Medications: Generic Name Dose Route Start Last Admin Trade Name Freq PRN Reason Stop Dose Admin Acetaminophen 650 mg 07/11/19 21:00 Tylenol PO Q4H PRN Pain, Mild (1-3) Clindamycin HCl 300 mg 07/11/19 22:00 07/13/19 09:10 Cleocin PO 300 mg QID [facility] Administration Diphenhydramine HCl 25 mg 07/11/19 18:34 07/12/19 20:13 Benadryl PO 25 mg Q8H PRN Administration Itching Enoxaparin Sodium 40 mg 07/11/19 22:00 07/12/19 21:20 Lovenox SUB-Q 40 mg QDAY@2200 [facility] Administration Sodium Chloride 1,000 mls @ 100 mls/hr 07/11/19 14:00 07/13/19 04:45 Nacl 0.9% 1000 Ml IV 100 mls/hr DIRECT [facility] Administration Sodium Chloride 1,000 mls @ 150 mls/hr 07/13/19 05:00 07/13/19 05:21 Nacl 0.9% 1000 Ml IV 150 mls/hr DIRECT [facility] Administration Vancomycin HCl 1 gm in 250 mls @ 166.667 mls/hr 07/13/19 16:00 Vancomycin/Ns 1 Gm/250 Ml IV DAILY [facility] Protocol Methylprednisolone Sodium Succinate 60 mg 07/11/19 14:00 07/13/19 05:18 Solu-Medrol IV 60 mg Q8HR [facility] Administration Morphine Sulfate 2 mg 07/11/19 21:00 Morphine IV Q4H PRN Pain, Moderate (4-6) Oxycodone/Acetaminophen 1 tab 07/11/19 21:00 07/12/19 20:12 Percocet 5/325 PO 1 tab Q6H PRN Administration Pain, Moderate (4-6) Pantoprazole Sodium 40 mg 07/12/19 10:00 07/13/19 09:10 Protonix PO 40 mg QDAY [facility] Administration
[2019-07-13] MEDS ORDERED: VANCOMYCIN 1,250 MG in NACL 0.9% 250ML 250 ML IV ONE (16:00)
--- NOTE | 2019-07-13 17:06 | Progress Note ---
Assessment and Plan Cultures: 07/11 BCx - GPC 1 of 4 07/11 UCx no growth A/P: 63 yo M PMhx lumbago admitted for bilateral ulcerative rash 1. SIRS - possible sepsis Likely secondary to ulcerative rash, with mild cellulitis +/- ?bacteremia 2. Bilateral LE ulcerative rash - unclear etiology. CRP 16. He reports drainage and fevers, Normal WBC. Consider obtaining a skin biopsy or dermatology consult. No clear exposures leading to rash. Art US no PVD. Venous US no DVT. 3. Low back pain 4. GPC bacteremia ? real v/s contaminant Recs: - repeat blood cx - continue clindamycin - agree with vancomycin IV for now - check TTE - obtain skin biopsy or dermatology consult. Ultimately needed to determine etiology of wounds. - f/u VIKY, ANCA, C3/C4 Will follow. Irish Pappas MD Infectious Diseases [facility] ([facility]) M [phone] O [phone] Subjective Date of service: 07/13/19 Principal diagnosis: sirs Interval history: No fever, feels better Objective - Exam Narrative Exam: General appearance: Alert in NAD Eyes: anicteric sclerae, moist conjunctivae; no lid-lag; PERRLA HENT: Atraumatic; oropharynx clear with moist mucous membranes and no mucosal ulcerations/no oral thrush; normal hard and soft palate. Lungs: CTA, with normal respiratory effort and no intercostal retractions CV: RRR no murmur Abdomen: Soft, non-tender; no masses or hepatosplenomegaly Extremities: no edema, no cyanosis Skin:mimi leg rash with dressings Psych: Appropriate affect, alert and oriented to person, place and time. Neuro: alert and oriented x 3. Moving all extermities - Constitutional Vitals: Vital Signs Temp Pulse Resp BP Pulse Ox 97.6 F 67 20 99/54 96 07/13/19 12:01 07/13/19 12:01 07/13/19 12:01 07/13/19 12:01 07/13/19 12:01 Temperature -Last 24 Hours Temperature 97.6 F Temperature 97.6 F Temperature 97.6 F Temperature 97.7 F - Labs CBC & Chem 7: 07/12/19 04:27 07/12/19 04:27 Labs: Abnormal lab results 07/12/19 Range/Units 18:13 Total Creatine Kinase 24 L (55-170) units/L CK-MB (CK-2) Rel Index 11.2 H (0-4)
[2019-07-13 19:19] LABS: Hepatitis B Surface Antigen Non-Reactive (Negative); Hepatitis C Virus Antibody Non-Reactive (NonReactive)
[2019-07-13] MEDS ORDERED: SOLU-Medrol IV SCH (20:00)
[2019-07-13] MEDS: PERCOCET 5/325 PO PRN (23:28)
[2019-07-13] MEDS: BENADRYL PO PRN (23:29)
[2019-07-13] MEDS: LOVENOX SUB-Q SCH (23:29)
[2019-07-14] MEDS: VANCOMYCIN/NS 1 GM/250 ML 1 GM/250 ML BAG IV SCH ×2 (04:53→18:26)
[2019-07-14] MEDS: NACL 0.9% 1000 ML 1,000 ML IV SCH ×2 (05:01→21:46)
[2019-07-14 06:37] LABS: BUN/Creatinine Ratio 38; Blood Urea Nitrogen 19 mg/dL (9-20); Calcium 7.6 mg/dL (8.4-10.2); Hemolysis Index 4
[2019-07-14] MEDS: PERCOCET 5/325 PO PRN ×3 (08:20→21:49)
[2019-07-14] MEDS: SOLU-Medrol IV SCH (10:40)
[2019-07-14] MEDS: CLEOCIN PO SCH ×4 (10:41→22:47)
[2019-07-14] MEDS: PROTONIX PO SCH (10:41)
--- NOTE | 2019-07-14 12:02 | Progress Note ---
Assessment and Plan Cultures: 07/11 BCx - S aureus 1 of 4 07/11 UCx no growth A/P: 63 yo M PMhx lumbago admitted for bilateral ulcerative rash 1. SIRS - possible sepsis Likely secondary to ulcerative rash, with mild cellulitis +/- ?bacteremia 2. Bilateral LE ulcerative rash - unclear etiology. CRP 16. He reports drainage and fevers, Normal WBC. Consider obtaining a skin biopsy or dermatology consult. No clear exposures leading to rash. Art US no PVD. Venous US no DVT. 3. Low back pain 4. GPC bacteremia ? real v/s contaminant Recs: - repeat blood cx - continue clindamycin - agree with vancomycin IV for now - follow up MICs - TTE pending read - obtain skin biopsy or dermatology consult. Ultimately needed to determine etiology of wounds. - f/u VIKY, ANCA, - C3/C4 WNL Thank you for the consult, we will continue to follow. Vitor Patel MD [facility] ([facility]) M: [phone] O: [phone] F: [phone] Subjective Date of service: 07/14/19 Principal diagnosis: sirs Objective - Exam Narrative Exam: Constitutional: Alert, cooperative. No acute distress Head, Ears, Nose: Normocephalic, atraumatic. External ears, nose normal Eyes: Conjunctivae/corneas clear. No icterus. No ptosis. Neck: Supple, no meningeal signs Oral: dentition fair, no thrush Cardiovascular: S1, S2 normal. Respiratory: Good air entry, clear to auscultation bilaterally GI: Soft, non-tender; bowel sounds normal. No peritoneal signs. Musculoskeletal: No pedal edema, no cyanosis. Skin: Bilateral legs dressed. Pictures in chart noted. has additional pictures on her phone. Hem/Lymphatic: No palpable cervical or supraclavicular nodes. No lymphangitis Psych: Mood ok. Affect normal Neurological: Awake, alert, oriented. No gross abnormality - Constitutional Vitals: Vital Signs Temp Pulse Resp BP Pulse Ox 97.9 F 68 20 106/65 93 07/14/19 05:07 07/14/19 05:07 07/14/19 05:07 07/14/19 05:07 07/14/19 05:07 Temperature -Last 24 Hours Temperature 97.9 F Temperature 97.6 F Temperature 97.6 F - Labs CBC & Chem 7: 07/12/19 04:27 07/14/19 05:33 Labs: Abnormal lab results 07/14/19 Range/Units 05:33 Creatinine 0.5 L (0.8-1.5) mg/dL Glucose 122 H (75-100) mg/dL Calcium 7.6 L (8.4-10.2) mg/dL
--- NOTE | 2019-07-14 14:58 | Progress Note ---
Assessment and Plan Assessment and plan: --SIRS :Febrile illness; rule out sepsis Antipyretics, --Gram-positive bacteremia; staph aureus 1 and 2 positive, follow sensitivities IV Vancomycin, clindamycin cultures, supportive care --Rash all over the body mainly in the lower extremities; ID evaluation and recommendations noted and appreciated Continue antibiotics, wound care, low-dose steroids, Dermatology service was not available here Dermatology evaluation upon discharge as outpatient --Hyponatremia; IV hydration Mild improvement Closely monitor electrolytes --Chronic lower back and hip pain; X-rays revealed no acute abnormality noted Pain meds, physical therapy occupational therapy --Chronic pain syndrome; supportive care and pain medications --Moderate to severe malnutrition/hypoalbuminemia Nutrition supplements and supportive care --DVT prophylaxis; Lovenox Follow culture sensitivities, possible discharge on oral antibiotics Plan of care is reviewed with the patient , his girlfriend and the nurse Possible discharge tomorrow on oral antibiotics History Interval history: Patient seen and examined medical records reviewed Patient feels slightly better , afebrile Alert awake oriented, vital signs noted Hospitalist Physical - Constitutional Vitals: Temp Pulse Resp BP Pulse Ox 97.9 F 71 20 123/74 95 07/14/19 12:53 07/14/19 12:53 07/14/19 12:53 07/14/19 12:53 07/14/19 12:53 General appearance: Present: no acute distress, well-nourished - EENT Eyes: Present: PERRL, EOM intact - Neck Neck: Present: supple, normal ROM - Respiratory Respiratory effort: normal Respiratory: bilateral: diminished, negative: rales, rhonchi, wheezing - Cardiovascular Rhythm: regular Heart Sounds: Present: S1 & S2 - Extremities Extremities: abnormal (lower extremities dressing in place) - Abdominal General gastrointestinal: soft, non-tender, non-distended, normal bowel sounds - Integumentary Integumentary: Present: clear, warm - Psychiatric Psychiatric: appropriate mood/affect, cooperative - Neurologic Neurologic: CNII-XII intact, moves all extremities Results - Labs CBC & Chem 7: 07/12/19 04:27 07/14/19 05:33 Labs: Laboratory Last Values WBC 5.5 K/mm3 (4.5-11.0) 07/12/19 04:27 RBC 3.41 M/mm3 (3.65-5.03) L 07/12/19 04:27 Hgb 10.1 gm/dl (11.8-15.2) L 07/12/19 04:27 Hct 29.7 % (35.5-45.6) L 07/12/19 04:27 MCV 87 fl (84-94) 07/12/19 04:27 MCH 30 pg (28-32) 07/12/19 04:27 MCHC 34 % (32-34) 07/12/19 04:27 RDW 14.4 % (13.2-15.2) 07/12/19 04:27 Plt Count 492 K/mm3 (140-440) H 07/12/19 04:27 Lymph % (Auto) 12.5 % (13.4-35.0) L 07/12/19 04:27 [place] % (Auto) 2.5 % (0.0-7.3) 07/12/19 04:27 Eos % (Auto) 0.0 % (0.0-4.3) 07/12/19 04:27 Baso % (Auto) 0.1 % (0.0-1.8) 07/12/19 04:27 Lymph # 0.7 K/mm3 (1.2-5.4) L 07/12/19 04:27 Carver # 0.1 K/mm3 (0.0-0.8) 07/12/19 04:27 Eos # 0.0 K/mm3 (0.0-0.4) 07/12/19 04:27 Baso # 0.0 K/mm3 (0.0-0.1) 07/12/19 04:27 Seg Neutrophils % 84.9 % (40.0-70.0) H 07/12/19 04:27 Seg Neutrophils # 4.7 K/mm3 (1.8-7.7) 07/12/19 04:27 ESR 71 mm/Hr (0-20) 07/11/19 09:02 PT 15.1 Sec. (12.2-14.9) H 07/11/19 09:02 INR 1.22 (0.87-1.13) H 07/11/19 09:02 APTT 34.5 Sec. (24.2-36.6) 07/11/19 09:02 Sodium 137 mmol/L (137-145) 07/14/19 05:33 Potassium 3.8 mmol/L (3.6-5.0) 07/14/19 05:33 Chloride 105.9 mmol/L (98-107) 07/14/19 05:33 Carbon Dioxide 22 mmol/L (22-30) 07/14/19 05:33 Anion Gap 13 mmol/L 07/14/19 05:33 BUN 19 mg/dL (9-20) 07/14/19 05:33 Creatinine 0.5 mg/dL (0.8-1.5) L 07/14/19 05:33 Estimated GFR > 60 ml/min 07/14/19 05:33 BUN/Creatinine Ratio 38 % 07/14/19 05:33 Glucose 122 mg/dL (75-100) H 07/14/19 05:33 Lactic Acid 0.80 mmol/L (0.7-2.0) 07/11/19 09:02 Uric Acid 3.8 mg/dL (3.5-7.6) 07/11/19 09:02 Calcium 7.6 mg/dL (8.4-10.2) L 07/14/19 05:33 Magnesium 2.20 mg/dL (1.7-2.3) 07/12/19 04:27 Total Bilirubin 0.30 mg/dL (0.1-1.2) 07/11/19 09:02 Direct Bilirubin < 0.2 mg/dL (0-0.2) 07/11/19 09:02 Indirect Bilirubin 0.1 mg/dL 07/11/19 09:02 AST 23 units/L (5-40) 07/11/19 09:02 ALT 13 units/L (7-56) 07/11/19 09:02 Alkaline Phosphatase 105 units/L (35-129) 07/11/19 09:02 Total Creatine Kinase 24 units/L (55-170) L 07/12/19 18:13 CK-MB (CK-2) 2.7 ng/mL (0.0-4.0) 07/12/19 18:13 CK-MB (CK-2) Rel Index 11.2 (0-4) H 07/12/19 18:13 Troponin T < 0.010 ng/mL (0.00-0.029) 07/12/19 18:13 C-Reactive Protein 16.50 mg/dL (0.00-1.30) H 07/11/19 09:02 Total Protein 7.0 g/dL (6.3-8.2) 07/11/19 09:02 Albumin 2.6 g/dL (3.9-5) L 07/11/19 09:02 Albumin/Globulin Ratio 0.6 % 07/11/19 09:02 TSH 1.950 mlU/mL (0.270-4.200) 07/11/19 09:02 Urine Color Yellow (Yellow) 07/11/19 Unknown Urine Turbidity Slightly-cloudy (Clear) 07/11/19 Unknown Urine pH 6.0 (5.0-7.0) 07/11/19 Unknown Ur Specific [place] 1.011 (1.003-1.030) 07/11/19 Unknown Urine Protein 30 mg/dl mg/dL (Negative) 07/11/19 Unknown Urine Glucose (UA) Neg mg/dL (Negative) 07/11/19 Unknown Urine Ketones Neg mg/dL (Negative) 07/11/19 Unknown Urine Blood Lg (Negative) 07/11/19 Unknown Urine Nitrite Neg (Negative) 07/11/19 Unknown Urine Bilirubin Neg (Negative) 07/11/19 Unknown Urine Urobilinogen < 2.0 mg/dL (<2.0) 07/11/19 Unknown Ur Leukocyte Esterase Neg (Negative) 07/11/19 Unknown Urine WBC (Auto) 6.0 /HPF (0.0-6.0) 07/11/19 Unknown Urine RBC (Auto) > 182.0 /HPF (0.0-6.0) 07/11/19 Unknown U Epithel Cells (Auto) < 1.0 /HPF (0-13.0) 07/11/19 Unknown Urine Mucus Few /HPF 07/11/19 Unknown Urine Osmolality 329 Mosm/kg 07/11/19 Unknown Urine Creatinine 70.0 mg/dL (0.1-20.0) H 07/11/19 Unknown Urine Sodium 32 mmol/L 07/11/19 Unknown Complement C3 135 mg/dL (82-185) 07/11/19 09:02 Complement C4 27 mg/dL (15-53) 07/11/19 09:02 Hepatitis A IgM Ab Non-reactive (NonReactive) 07/13/19 18:33 Hep Bs Antigen Non-reactive (Negative) 07/13/19 18:33 Hep B Core IgM Ab Non-reactive (NonReactive) 07/13/19 18:33 Hepatitis C Antibody Non-reactive (NonReactive) 07/13/19 18:33 Active Medications - Current Medications Current Medications: Generic Name Dose Route Start Last Admin Trade Name Freq PRN Reason Stop Dose Admin Acetaminophen 650 mg 07/11/19 21:00 Tylenol PO Q4H PRN Pain, Mild (1-3) Clindamycin HCl 300 mg 07/11/19 22:00 07/14/19 14:45 Cleocin PO 300 mg QID TORITO Administration Diphenhydramine HCl 25 mg 07/11/19 18:34 07/13/19 23:29 Benadryl PO 25 mg Q8H PRN Administration Itching Enoxaparin Sodium 40 mg 07/11/19 22:00 07/13/19 23:29 Lovenox SUB-Q 40 mg QDAY@2200 TORITO Administration Sodium Chloride 1,000 mls @ 100 mls/hr 07/11/19 14:00 07/14/19 05:01 Nacl 0.9% 1000 Ml IV 100 mls/hr DIRECT TORITO Administration Sodium Chloride 1,000 mls @ 150 mls/hr 07/13/19 05:00 07/13/19 19:39 Nacl 0.9% 1000 Ml IV 150 mls/hr DIRECT TORITO Administration Vancomycin HCl 1 gm in 250 mls @ 166.667 mls/hr 07/14/19 04:00 07/14/19 04:53 Vancomycin/Ns 1 Gm/250 Ml IV 166.667 mls/hr Q12H TORITO Administration Protocol Methylprednisolone Sodium Succinate 20 mg 07/13/19 20:00 07/14/19 10:40 Solu-Medrol IV 20 mg Q12H TORITO Administration Morphine Sulfate 2 mg 07/11/19 21:00 Morphine IV Q4H PRN Pain, Moderate (4-6) Oxycodone/Acetaminophen 1 tab 07/11/19 21:00 07/14/19 14:47 Percocet 5/325 PO 1 tab Q6H PRN Administration Pain, Moderate (4-6) Pantoprazole Sodium 40 mg 07/12/19 10:00 07/14/19 10:41 Protonix PO 40 mg QDAY TORITO Administration
[2019-07-14] MEDS: LOVENOX SUB-Q SCH (21:50)
[2019-07-14] MEDS: BENADRYL PO PRN (21:50)
[2019-07-14 22:04] LABS: ANA Screen, IFA Negative (Negative)
[2019-07-15] MEDS: VANCOMYCIN/NS 1 GM/250 ML 1 GM/250 ML BAG IV SCH (04:50)
[2019-07-15] MEDS: PERCOCET 5/325 PO PRN ×3 (04:53→21:48)
[2019-07-15] MEDS: MORPHINE IV PRN (09:14)
[2019-07-15] MEDS: NACL 0.9% 1000 ML 1,000 ML IV SCH ×2 (09:15→23:32)
[2019-07-15] MEDS: DELTASONE PO SCH (09:16)
[2019-07-15] MEDS: PROTONIX PO SCH (09:16)
[2019-07-15] MEDS: CLEOCIN PO SCH ×4 (09:16→21:47)
--- NOTE | 2019-07-15 13:40 | Discharge Summary ---
Providers - Providers Date of Admission: 07/11/19 09:52 Date of discharge: 07/15/19 Attending physician: SUSANA NGUYEN 07/11/19 13:28 Consult to Wound/ET Nurse [CONS] Routine Reason For Exam: wound eval 07/11/19 20:42 Consult to Physician [CONS] Routine Comment: Consulting Provider: JENARO FIELDS Physician Instructions: Reason For Exam: Fever/rash 07/13/19 08:33 Physical Therapy Evaluation and Treat [CONS] Routine Comment: Reason For Exam: back pain ,gen debility Primary care physician: DATA [employer]PER[employer] MANAGER Hospitalization Condition: Fair Disposition: DC-01 TO HOME OR SELFCARE Time spent for discharge: 32 min Core Measure Documentation - Palliative Care Palliative Care/ Comfort Measures: Not Applicable - Core Measures Any of the following diagnoses?: none Exam - Constitutional Vitals: Temp Pulse Resp BP Pulse Ox 99.0 F 85 22 128/80 94 07/15/19 11:44 07/15/19 11:44 07/15/19 11:44 07/15/19 11:44 07/15/19 11:44 General appearance: Present: no acute distress, well-nourished - EENT Eyes: Present: PERRL, EOM intact - Neck Neck: Present: supple, normal ROM - Respiratory Respiratory effort: normal Respiratory: negative: rales, rhonchi, wheezing - Cardiovascular Rhythm: regular Heart Sounds: Present: S1 & S2 - Extremities Extremities: no ischemia, No edema, abnormal (dressing changed , significant improvement) - Abdominal General gastrointestinal: Present: soft, non-tender, non-distended, normal bowel sounds - Integumentary Integumentary: Present: clear, warm - Musculoskeletal Musculoskeletal: strength equal bilaterally - Psychiatric Psychiatric: appropriate mood/affect, cooperative - Neurologic Neurologic: moves all extremities Plan Activity: advance as tolerated, fall precautions Diet: regular Additional Instructions: Advised to see a painter plate in 1 week. Skin biopsy outpatient at painter plate's office Follow up with: DIPTI CR MD [Primary Care Provider] - 3-5 Days WISAM ISRAEL MD [Staff Physician] - 7 Days Prescriptions: Sulfamethoxazole/Trimethoprim [Bactrim DS TAB] 1 each PO BID #20 tablet diphenhydrAMINE [Benadryl CAP] 25 mg PO Q8H PRN #20 capsule PRN Reason: Itching predniSONE [Deltasone] 10 mg PO QDAY #7 tab
--- NOTE | 2019-07-15 14:46 | Progress Note ---
Assessment and Plan Cultures: 07/11 BCx - MSSA 07/13/19 blood cultures - MSSA 07/11 UCx no growth A/P: 63 yo M PMhx lumbago admitted for bilateral ulcerative rash 1. SIRS - possible sepsis Likely secondary to ulcerative rash, with mild cellulitis, now with bacteremia 2. Bilateral LE ulcerative rash - unclear etiology. CRP 16. He reports drainage and fevers, Normal WBC. Consider obtaining a skin biopsy or dermatology consult. No clear exposures leading to rash. Art US no PVD. Venous US no DVT. 3. Low back pain 4. MSSA bacteremia - Must remain inpatient with IV antibiotics until negative blood cultures achieved. Recs: - repeat blood cx - continue clindamycin - stop vancomycin - start cefazolin 2g q8h. Will need 4 weeks from first negative culture - ok for PICC when blood cultures negative for 48 hours. - TTE normal - obtain skin biopsy or dermatology consult. Ultimately needed to determine etiology of wounds. - VIKY negative - C3/C4 WNL - Patient cannot be discharged on PO antibiotics with an active Staph aureus bacteremia. Must remain inpatient with IV antibiotics until negative blood cult ures achieved. Thank you for the consult, we will continue to follow. Vitor Patel MD [facility] ([facility]) M: [phone] O: [phone] F: [phone] Subjective Date of service: 07/15/19 Principal diagnosis: sirs Interval history: No acute complaints, remains anxious. Afebrile, normal white count. Objective - Exam Narrative Exam: Constitutional: Alert, cooperative. No acute distress Head, Ears, Nose: Normocephalic, atraumatic. External ears, nose normal Eyes: Conjunctivae/corneas clear. No icterus. No ptosis. Neck: Supple, no meningeal signs Oral: dentition fair, no thrush Cardiovascular: S1, S2 normal. Respiratory: Good air entry, clear to auscultation bilaterally GI: Soft, non-tender; bowel sounds normal. No peritoneal signs. Musculoskeletal: No pedal edema, no cyanosis. Skin: Bilateral legs dressed. Pictures in chart noted. has additional pictures on her phone. Hem/Lymphatic: No palpable cervical or supraclavicular nodes. No lymphangitis Psych: Mood ok. Affect normal Neurological: Awake, alert, oriented. No gross abnormality - Constitutional Vitals: Vital Signs Temp Pulse Resp BP Pulse Ox 99.0 F 85 22 128/80 94 07/15/19 11:44 07/15/19 11:44 07/15/19 11:44 07/15/19 11:44 07/15/19 11:44 Temperature -Last 24 Hours Temperature 99.0 F Temperature 99.1 F Temperature 98.8 F Temperature 98.1 F - Labs CBC & Chem 7: 07/12/19 04:27 07/14/19 05:33
[2019-07-15] MEDS: ceFAZolin 2 GM in NACL 0.9% 100 ML IV SCH (17:58)
--- NOTE | 2019-07-15 18:55 | Progress Note ---
Assessment and Plan Assessment and plan: --SIRS :Febrile illness; rule out sepsis Antipyretics, --Gram-positive bacteremia; staph aureus 1 and 2 positive, follow sensitivities IV Vancomycin, clindamycin supportive care ID following --Rash all over the body mainly in the lower extremities; Continue antibiotics, wound care, low-dose steroids, Dermatology service was not available here Dermatology evaluation, skin biopsy upon discharge as outpatient --Hyponatremia; IV hydration Resolved --Chronic lower back and hip pain; X-rays revealed no acute abnormality noted Pain meds, physical therapy occupational therapy --Chronic pain syndrome; supportive care and pain medications --Moderate to severe malnutrition/hypoalbuminemia Nutrition supplements and supportive care --DVT prophylaxis; Lovenox Follow culture sensitivities, possible discharge on oral antibiotics Discharge When cleared by ID Plan of care is reviewed with the patient , his girlfriend and the nurse History Interval history: Patient seen and examined medical records reviewed Patient feels slightly better , afebrile Alert awake oriented, vital signs noted Hospitalist Physical - Constitutional Vitals: Temp Pulse Resp BP Pulse Ox 98.4 F 78 22 122/72 98 07/15/19 16:51 07/15/19 16:51 07/15/19 16:51 07/15/19 16:51 07/15/19 16:51 General appearance: Present: no acute distress, well-nourished Results - Labs CBC & Chem 7: 07/12/19 04:27 07/14/19 05:33 Labs: Laboratory Last Values WBC 5.5 K/mm3 (4.5-11.0) 07/12/19 04:27 RBC 3.41 M/mm3 (3.65-5.03) L 07/12/19 04:27 Hgb 10.1 gm/dl (11.8-15.2) L 07/12/19 04:27 Hct 29.7 % (35.5-45.6) L 07/12/19 04:27 MCV 87 fl (84-94) 07/12/19 04:27 MCH 30 pg (28-32) 07/12/19 04:27 MCHC 34 % (32-34) 07/12/19 04:27 RDW 14.4 % (13.2-15.2) 07/12/19 04:27 Plt Count 492 K/mm3 (140-440) H 07/12/19 04:27 Lymph % (Auto) 12.5 % (13.4-35.0) L 07/12/19 04:27 [place] % (Auto) 2.5 % (0.0-7.3) 07/12/19 04:27 Eos % (Auto) 0.0 % (0.0-4.3) 07/12/19 04:27 Baso % (Auto) 0.1 % (0.0-1.8) 07/12/19 04:27 Lymph # 0.7 K/mm3 (1.2-5.4) L 07/12/19 04:27 Drew # 0.1 K/mm3 (0.0-0.8) 07/12/19 04:27 Eos # 0.0 K/mm3 (0.0-0.4) 07/12/19 04:27 Baso # 0.0 K/mm3 (0.0-0.1) 07/12/19 04:27 Seg Neutrophils % 84.9 % (40.0-70.0) H 07/12/19 04:27 Seg Neutrophils # 4.7 K/mm3 (1.8-7.7) 07/12/19 04:27 ESR 71 mm/Hr (0-20) 07/11/19 09:02 PT 15.1 Sec. (12.2-14.9) H 07/11/19 09:02 INR 1.22 (0.87-1.13) H 07/11/19 09:02 APTT 34.5 Sec. (24.2-36.6) 07/11/19 09:02 Sodium 137 mmol/L (137-145) 07/14/19 05:33 Potassium 3.8 mmol/L (3.6-5.0) 07/14/19 05:33 Chloride 105.9 mmol/L (98-107) 07/14/19 05:33 Carbon Dioxide 22 mmol/L (22-30) 07/14/19 05:33 Anion Gap 13 mmol/L 07/14/19 05:33 BUN 19 mg/dL (9-20) 07/14/19 05:33 Creatinine 0.5 mg/dL (0.8-1.5) L 07/14/19 05:33 Estimated GFR > 60 ml/min 07/14/19 05:33 BUN/Creatinine Ratio 38 % 07/14/19 05:33 Glucose 122 mg/dL (75-100) H 07/14/19 05:33 Lactic Acid 0.80 mmol/L (0.7-2.0) 07/11/19 09:02 Uric Acid 3.8 mg/dL (3.5-7.6) 07/11/19 09:02 Calcium 7.6 mg/dL (8.4-10.2) L 07/14/19 05:33 Magnesium 2.20 mg/dL (1.7-2.3) 07/12/19 04:27 Total Bilirubin 0.30 mg/dL (0.1-1.2) 07/11/19 09:02 Direct Bilirubin < 0.2 mg/dL (0-0.2) 07/11/19 09:02 Indirect Bilirubin 0.1 mg/dL 07/11/19 09:02 AST 23 units/L (5-40) 07/11/19 09:02 ALT 13 units/L (7-56) 07/11/19 09:02 Alkaline Phosphatase 105 units/L (35-129) 07/11/19 09:02 Total Creatine Kinase 24 units/L (55-170) L 07/12/19 18:13 CK-MB (CK-2) 2.7 ng/mL (0.0-4.0) 07/12/19 18:13 CK-MB (CK-2) Rel Index 11.2 (0-4) H 07/12/19 18:13 Troponin T < 0.010 ng/mL (0.00-0.029) 07/12/19 18:13 C-Reactive Protein 16.50 mg/dL (0.00-1.30) H 07/11/19 09:02 Total Protein 7.0 g/dL (6.3-8.2) 07/11/19 09:02 Albumin 2.6 g/dL (3.9-5) L 07/11/19 09:02 Albumin/Globulin Ratio 0.6 % 07/11/19 09:02 TSH 1.950 mlU/mL (0.270-4.200) 07/11/19 09:02 Urine Color Yellow (Yellow) 07/11/19 Unknown Urine Turbidity Slightly-cloudy (Clear) 07/11/19 Unknown Urine pH 6.0 (5.0-7.0) 07/11/19 Unknown Ur Specific [place] 1.011 (1.003-1.030) 07/11/19 Unknown Urine Protein 30 mg/dl mg/dL (Negative) 07/11/19 Unknown Urine Glucose (UA) Neg mg/dL (Negative) 07/11/19 Unknown Urine Ketones Neg mg/dL (Negative) 07/11/19 Unknown Urine Blood Lg (Negative) 07/11/19 Unknown Urine Nitrite Neg (Negative) 07/11/19 Unknown Urine Bilirubin Neg (Negative) 07/11/19 Unknown Urine Urobilinogen < 2.0 mg/dL (<2.0) 07/11/19 Unknown Ur Leukocyte Esterase Neg (Negative) 07/11/19 Unknown Urine WBC (Auto) 6.0 /HPF (0.0-6.0) 07/11/19 Unknown Urine RBC (Auto) > 182.0 /HPF (0.0-6.0) 07/11/19 Unknown U Epithel Cells (Auto) < 1.0 /HPF (0-13.0) 07/11/19 Unknown Urine Mucus Few /HPF 07/11/19 Unknown Urine Osmolality 329 Mosm/kg 07/11/19 Unknown Urine Creatinine 70.0 mg/dL (0.1-20.0) H 07/11/19 Unknown Urine Sodium 32 mmol/L 07/11/19 Unknown VIKY Screen Negative (Negative) 07/11/19 09:02 Complement C3 135 mg/dL (82-185) 07/11/19 09:02 Complement C4 27 mg/dL (15-53) 07/11/19 09:02 Hepatitis A IgM Ab Non-reactive (NonReactive) 07/13/19 18:33 Hep Bs Antigen Non-reactive (Negative) 07/13/19 18:33 Hep B Core IgM Ab Non-reactive (NonReactive) 07/13/19 18:33 Hepatitis C Antibody Non-reactive (NonReactive) 07/13/19 18:33 Active Medications - Current Medications Current Medications: Generic Name Dose Route Start Last Admin Trade Name Freq PRN Reason Stop Dose Admin Acetaminophen 650 mg 07/11/19 21:00 Tylenol PO Q4H PRN Pain, Mild (1-3) Clindamycin HCl 300 mg 07/11/19 22:00 07/15/19 18:09 Cleocin PO 300 mg QID TORITO Administration Diphenhydramine HCl 25 mg 07/11/19 18:34 07/14/19 21:50 Benadryl PO 25 mg Q8H PRN Administration Itching Enoxaparin Sodium 40 mg 07/11/19 22:00 07/14/19 21:50 Lovenox SUB-Q 40 mg QDAY@2200 TORITO Administration Sodium Chloride 1,000 mls @ 100 mls/hr 07/11/19 14:00 07/15/19 09:15 Nacl 0.9% 1000 Ml IV 100 mls/hr DIRECT TORITO Administration Sodium Chloride 1,000 mls @ 150 mls/hr 07/13/19 05:00 07/14/19 21:46 Nacl 0.9% 1000 Ml IV 150 mls/hr DIRECT TORITO Administration Cefazolin Sodium 2 gm/ Sodium 100 mls @ 200 mls/hr 07/15/19 18:00 07/15/19 17:58 Chloride IV 200 mls/hr Q8H TORITO Administration Protocol Morphine Sulfate 2 mg 07/11/19 21:00 07/15/19 09:14 Morphine IV 2 mg Q4H PRN Administration Pain, Moderate (4-6) Oxycodone/Acetaminophen 1 tab 07/11/19 21:00 07/15/19 14:49 Percocet 5/325 PO 1 tab Q6H PRN Administration Pain, Moderate (4-6) Pantoprazole Sodium 40 mg 07/12/19 10:00 07/15/19 09:16 Protonix PO 40 mg QDAY TORITO Administration Prednisone 20 mg 07/15/19 10:00 07/15/19 09:16 Deltasone PO 20 mg QDAY TORITO Administration
[2019-07-15] MEDS: BENADRYL PO PRN (21:48)
[2019-07-15] MEDS: LOVENOX SUB-Q SCH (21:49)
[2019-07-16] MEDS: MORPHINE IV PRN ×3 (00:50→18:41)
[2019-07-16] MEDS: ceFAZolin 2 GM in NACL 0.9% 100 ML IV SCH ×3 (01:56→17:38)
[2019-07-16] MEDS: NACL 0.9% 1000 ML 1,000 ML IV SCH ×4 (07:03→23:01)
[2019-07-16] MEDS: PROTONIX PO SCH (10:22)
[2019-07-16] MEDS: DELTASONE PO SCH (10:22)
[2019-07-16] MEDS: CLEOCIN PO SCH ×3 (10:22→17:38)
[2019-07-16] MEDS: PERCOCET 5/325 PO PRN ×2 (13:11→23:01)
--- NOTE | 2019-07-16 14:09 | Progress Note ---
Assessment and Plan --SIRS :Febrile illness; rule out sepsis Antipyretics, --Gram-positive bacteremia; staph aureus 1 and 2 positive, follow sensitivities IV Vancomycin, clindamycin supportive care ID following --Rash all over the body mainly in the lower extremities; Continue antibiotics, wound care, low-dose steroids, Dermatology service was not available here Dermatology evaluation, skin biopsy upon discharge as outpatient --Hyponatremia; IV hydration Resolved --Chronic lower back and hip pain; X-rays revealed no acute abnormality noted Pain meds, physical therapy occupational therapy --Chronic pain syndrome; supportive care and pain medications --Moderate to severe malnutrition/hypoalbuminemia Nutrition supplements and supportive care --DVT prophylaxis; Lovenox Follow culture sensitivities, possible discharge on oral antibiotics Discharge When cleared by ID Subjective Date of service: 07/16/19 Principal diagnosis: sirs Interval history: Patient seen and examined. Lying quietly in bed. Afebrile. Objective - Exam Narrative Exam: Constitutional: Well-nourished well-developed. In no distress Head: Normocephalic atraumatic Eyes: Pupils are equal round and reactive to light Nose: No enlarged turbinates, no septal deviation. Mouth: Moist mucous membranes. Neck: Supple no thyromegaly. No bruit. No JVD Heart: Regular rate and rhythm, S1-S2 normal. No rubs murmurs or gallop Lungs: Clear to auscultation bilaterally. no rales or rhonchi Abdomen: Soft, nontender. Bowel sound are present. Extremities: Dry dressing of both lower extremities, Neuro: Alert oriented Oriented x3. No focal sensory or motor deficit. Skin: No rashes or hyperpigmented spots Musculoskeletal system: No joint pain or swelling Hematological: No petechia or subcutanous hemorrhages. Immunological: No multiple septic spots on the skin Lymphatic: No generalized lymphadenopathy Psychiatry: Euthymic. Calm. - Constitutional Vitals: Vital Signs - 12hr 07/16/19 07/16/19 05:45 12:25 Temperature 98.5 F 97.9 F Pulse Rate 65 82 Respiratory 18 22 Rate Blood Pressure 127/69 139/88 O2 Sat by Pulse 94 95 Oximetry - Labs CBC & Chem 7: 07/12/19 04:27 07/14/19 05:33
--- NOTE | 2019-07-16 18:13 | Progress Note ---
Assessment and Plan Cultures: 07/11/19 blood cultures - MSSA 07/13/19 blood cultures - MSSA 07/15/2019 blood culture: In progress 07/11 UCx no growth A/P: 63 yo M PMhx lumbago admitted for bilateral ulcerative rash 1. SIRS - possible sepsis likely secondary to MSSA bacteremia 2. Bilateral LE rash - unclear etiology. CRP 16. He reports drainage and fevers, Normal WBC. Consider obtaining a skin biopsy or dermatology consult. No clear exposures leading to rash. Art US no PVD. Venous US no DVT. VIKY negative, C3/C4 WNL. Hepatitis serologies negative. 3. Low back pain: MRI spine ordered given back pain in patient with MSSA bacteremia of unknown etiology, rule out discitis/osteomyelitis, psoas abscess 4. MSSA bacteremia - Must remain inpatient with IV antibiotics until negative blood cultures achieved. TTE unremarkable for endocarditis. Recs: - MRI spine ordered given back pain in patient with MSSA bacteremia of unknown etiology, rule out discitis/osteomyelitis, psoas abscess - f/u repeat blood cx, ok for PICC when blood cultures negative for 48 hours - discontinued clindamycin - continue IV cefazolin 2g q8h. Will need 4-6 weeks from first negative culture if MRI spine negative for infection - may need to obtain skin biopsy or dermatology consult, probably as outpatient. Ultimately needed to determine etiology of the rash on b/l LE Ilda Spann MD, FACP [facility] ([facility]) C: [phone] O: [phone] F: [phone] Subjective Date of service: 07/16/19 Principal diagnosis: sirs Interval history: No fever. Back pain has been going on for about 2-3 weeks. No nausea, vomiting or diarrhea. no new rash except b/l LE. Objective - Exam Narrative Exam: Physical Exam: Constitutional: Alert, cooperative. No acute distress Head, Ears, Nose: Normocephalic, atraumatic. External ears, nose normal Eyes: Conjunctivae/corneas clear. No icterus. No ptosis. Neck: Supple, no meningeal signs Cardiovascular: S1, S2 normal. Respiratory: Good air entry, clear to auscultation bilaterally GI: Soft, non-tender; bowel sounds normal. No peritoneal signs Musculoskeletal: No pedal edema, no cyanosis. Skin: b/l LE purpuric rash Hem/Lymphatic: No palpable cervical or supraclavicular nodes. No lymphangitis Psych: Mood ok. Affect normal Neurological: Awake, alert, oriented. No gross abnormality - Constitutional Vitals: Vital Signs Temp Pulse Resp BP Pulse Ox 97.9 F 82 22 139/88 95 07/16/19 12:25 07/16/19 12:25 07/16/19 12:25 07/16/19 12:25 07/16/19 12:25 Temperature -Last 24 Hours Temperature 97.9 F Temperature 98.5 F Temperature 98.8 F - Labs CBC & Chem 7: 07/12/19 04:27 07/14/19 05:33
[2019-07-16] MEDS: LOVENOX SUB-Q SCH (22:41)
[2019-07-16] MEDS: BENADRYL PO PRN (23:01)
[2019-07-17] MEDS: ceFAZolin 2 GM in NACL 0.9% 100 ML IV SCH ×3 (01:54→18:32)
[2019-07-17 05:24] LABS: Basophils # (Auto) 0.1 K/mm3 (0.0-0.1); Basophils % (Auto) 1.3 % (0.0-1.8); Eosinophils # (Auto) 0.1 K/mm3 (0.0-0.4); Eosinophils % (Auto) 1.6 % (0.0-4.3); Hematocrit 27.7 % (35.5-45.6); Hemoglobin 9.2 gm/dl (11.8-15.2); Lymphocytes # (Auto) 1.6 K/mm3 (1.2-5.4); Lymphocytes % (Auto) 21.8 % (13.4-35.0); Mean Corpuscular HGB Conc 33 % (32-34); Mean Corpuscular Volume 88 fl (84-94); Monocytes # (Auto) 0.5 K/mm3 (0.0-0.8); Platelet Count 554 K/mm3 (140-440); Red Blood Count 3.16 M/mm3 (3.65-5.03); Red Cell Distribution Width 15.2 % (13.2-15.2)
[2019-07-17 05:49] LABS: Alanine Aminotransferase 11 units/L (7-56); Albumin 2.1 g/dL (3.9-5); BUN/Creatinine Ratio 11; Blood Urea Nitrogen 8 mg/dL (9-20); Calcium 7.3 mg/dL (8.4-10.2); Hemolysis Index 2
[2019-07-17] MEDS: MORPHINE IV PRN (05:53)
[2019-07-17] MEDS: PROTONIX PO SCH (09:35)
[2019-07-17] MEDS: DELTASONE PO SCH (09:35)
[2019-07-17] MEDS: NACL 0.9% 1000 ML 1,000 ML IV SCH ×2 (09:38→18:29)
[2019-07-17 19:38] LABS: Myeloperoxidase Antibody <1.0 AI (<1.0)
[2019-07-17] MEDS: PERCOCET 5/325 PO PRN (21:08)
[2019-07-17] MEDS: LOVENOX SUB-Q SCH (21:09)
[2019-07-17] MEDS: BENADRYL PO PRN (21:09)
--- NOTE | 2019-07-17 22:06 | Progress Note ---
Assessment and Plan -SIRS :Febrile illness; rule out sepsis Antipyretics, -Gram-positive bacteremia; staph aureus 1 and 2 positive, follow sensitivities IV Vancomycin, clindamycin supportive care ID following -Rash all over the body mainly in the lower extremities; Continue antibiotics, wound care, low-dose steroids, Dermatology service was not available here Dermatology evaluation, skin biopsy upon discharge as outpatient -Hypokalemia Supplement and recheck -Chronic lower back and hip pain; X-rays revealed no acute abnormality noted Pain meds, physical therapy occupational therapy -Chronic pain syndrome; supportive care and pain medications -Moderate to severe malnutrition/hypoalbuminemia Nutrition supplements and supportive care -DVT prophylaxis; Lovenox Follow culture sensitivities, possible discharge on oral antibiotics Discharge When cleared by ID Subjective Date of service: 07/17/19 Principal diagnosis: SIRS, MSSA bacteremia, bilateral LE rash and ulcer Interval history: Patient seen and examined. Lying quietly in bed. Afebrile. Objective - Exam Narrative Exam: Constitutional: Well-nourished well-developed. In no distress Head: Normocephalic atraumatic Eyes: Pupils are equal round and reactive to light Nose: No enlarged turbinates, no septal deviation. Mouth: Moist mucous membranes. Neck: Supple no thyromegaly. No bruit. No JVD Heart: Regular rate and rhythm, S1-S2 normal. No rubs murmurs or gallop Lungs: Clear to auscultation bilaterally. no rales or rhonchi Abdomen: Soft, nontender. Bowel sound are present. Extremities: Dry dressing of both lower extremities, Neuro: Alert oriented Oriented x3. No focal sensory or motor deficit. Skin: No rashes or hyperpigmented spots Musculoskeletal system: No joint pain or swelling Hematological: No petechia or subcutanous hemorrhages. Immunological: No multiple septic spots on the skin Lymphatic: No generalized lymphadenopathy Psychiatry: Euthymic. Calm. - Constitutional Vitals: Vital Signs - 12hr 07/17/19 07/17/19 07/17/19 12:31 18:02 21:08 Temperature 98.3 F 98.3 F Pulse Rate 79 73 Respiratory 22 22 18 Rate Respiratory Rate [Bilateral Leg] Blood Pressure 133/76 134/80 O2 Sat by Pulse 92 96 Oximetry 07/17/19 07/17/19 21:16 21:58 Temperature 97.5 F L Pulse Rate 73 Respiratory 24 Rate Respiratory 18 Rate [Bilateral Leg] Blood Pressure 126/67 O2 Sat by Pulse 95 Oximetry - Labs CBC & Chem 7: 07/17/19 04:21 07/17/19 04:21 Labs: Abnormal lab results 07/17/19 07/17/19 Range/Units 04:21 04:21 RBC 3.16 L (3.65-5.03) M/mm3 Hgb 9.2 L (11.8-15.2) gm/dl Hct 27.7 L (35.5-45.6) % Plt Count 554 H (140-440) K/mm3 Sodium 136 L (137-145) mmol/L Potassium 3.4 L (3.6-5.0) mmol/L BUN 8 L (9-20) mg/dL Creatinine 0.7 L (0.8-1.5) mg/dL Glucose 108 H (75-100) mg/dL Calcium 7.3 L (8.4-10.2) mg/dL Total Protein 5.3 L (6.3-8.2) g/dL Albumin 2.1 L (3.9-5) g/dL
[2019-07-18] MEDS: ceFAZolin 2 GM in NACL 0.9% 100 ML IV SCH ×3 (01:41→17:56)
[2019-07-18] MEDS: NACL 0.9% 1000 ML 1,000 ML IV SCH ×2 (01:41→17:59)
[2019-07-18] MEDS: PERCOCET 5/325 PO PRN (03:43)
[2019-07-18 05:34] LABS: Basophils # (Auto) 0.1 K/mm3 (0.0-0.1); Basophils % (Auto) 1.1 % (0.0-1.8); Eosinophils # (Auto) 0.1 K/mm3 (0.0-0.4); Eosinophils % (Auto) 1.7 % (0.0-4.3); Hematocrit 26.6 % (35.5-45.6); Lymphocytes # (Auto) 1.9 K/mm3 (1.2-5.4); Lymphocytes % (Auto) 24.6 % (13.4-35.0); Mean Corpuscular HGB Conc 34 % (32-34); Mean Corpuscular Volume 87 fl (84-94); Monocytes # (Auto) 0.6 K/mm3 (0.0-0.8); Monocytes % (Auto) 7.1 % (0.0-7.3); Platelet Count 535 K/mm3 (140-440); Red Blood Count 3.06 M/mm3 (3.65-5.03)
[2019-07-18 05:58] LABS: Alanine Aminotransferase 8 units/L (7-56); Albumin 2.3 g/dL (3.9-5); BUN/Creatinine Ratio 13; Blood Urea Nitrogen 8 mg/dL (9-20); Calcium 7.4 mg/dL (8.4-10.2); Hemolysis Index 3
[2019-07-18] MEDS: MORPHINE IV PRN ×3 (07:50→19:21)
--- NOTE | 2019-07-18 11:29 | Magnetic Resonance Report ---
MR lumbar spine wo/w con INDICATION / CLINICAL INFORMATION: 64 years Male; Back pain, MSSA bacteremia, eval for osteo, psoas. TECHNIQUE: Multisequence, multiplanar images of the lumbar spine were obtained. Motion artifact COMPARISON: None available. FINDINGS: ALIGNMENT: There is grade 1 anterolisthesis of L4 with respect to L5 and L5 with respect to S1, which may be related to spondylolysis bilaterally at L4 and L5. CT may be helpful for further evaluation. VERTEBRAE:Grossly normal marrow signal and vertebral body height for age. However, there are edemato us endplate changes seen anteriorly at L4-5 and leftward of midline at L5-S1, felt to be discogenic i n origin. These findings may be a source of back pain. VISUALIZED SPINAL CORD: No significant abnormality. Conus is grossly normal in appearance. INTERVERTEBRAL DISCS: Desiccation seen at L4-5 and L5-S1. [id number] ANALYSIS: L1-2: Minimal disc bulge. Small extra foraminal disc protrusion on the left. No significant sequela. L2-3: No significant abnormality. L3-4: No significant abnormality. Minimal facet hypertrophy. L4-5: Mild disc bulge and facet hypertrophy. No significant canal stenosis. Mild foraminal narrowing bilaterally. There is encroachment upon the right L4 nerve without impingement. Similar findings are seen on the left to a lesser degree. L5-S1: Mild disc bulge and facet hypertrophy. Foraminal/extraforaminal disc protrusion seen on the le ft which encroaches upon and mildly flattens the left L5 nerve. Mild foraminal narrowing on the right . PARASPINAL SOFT TISSUES: There is a fluid collection along the anterior margin of the sacroiliac join t on the left in the left iliacus muscle. Abscess is suspected. This abscess most likely involves lef t sacroiliac joint as well. Adjacent edema and/or osteomyelitis seen in the sacrum and iliac bone. Th ere is some component of edema in the adjacent erector spinae musculature posteriorly, as well. ADDITIONAL FINDINGS: None. IMPRESSION: 1. 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 Osteomyelitis of the bones surrounding the left sacroiliac joint certainly co uld be considered. 2. 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 CT may be of benefit. Signer Name: Álvaro Broderick MD, III Signed: 07/18/2019 11:25 AM Workstation Name: [id number]
--- NOTE | 2019-07-18 11:37 | Magnetic Resonance Report ---
MR thoracic spine wo/w con INDICATION / CLINICAL INFORMATION: 64 years Male; Back pain, MSSA bacteremia, eval for osteo, psoas. TECHNIQUE: Multisequence, multiplanar images of the thoracic spine were obtained. Motion artifact. COMPARISON: None available. FINDINGS: ALIGNMENT: Mild excessive kyphosis of the thoracic spine noted. VERTEBRAE:There is significant wedging seen at T2 and T3, there is suggestion of discitis. There is a lso anterior wedging at T7, which appears to be on a chronic basis. Mild edema seen in the T6 and T5 vertebrae-discitis at this level is suspected. Epidural fluid collection is suggested at T2-3. There is encroachment upon and posterior displacement of the thoracic cord at this level. No definitive signs of cord edema. Multiloculated, small paraspi nous collections are seen laterally at this level as well. Edematous changes certainly are seen in th e T2-3 foraminal regions-findings could affect the exiting T2 nerves. There is a small epidural abscess suggested leftward of midline at the T5-6 level which slightly encr oach upon the left anterior hemicord. No definitive signs of cord edema appreciated. VISUALIZED SPINAL CORD: See above. No other significant changes appreciated. INTERVERTEBRAL DISCS: See above. There is a small left medial foraminal/foraminal disc protrusion at T9-T10, without significant sequela. Otherwise, no signs of dominant disc herniation seen. PARASPINAL SOFT TISSUES: See above. ADDITIONAL FINDINGS: Bilateral pleural effusions identified. Pleural effusion on the left may be locu lated. IMPRESSION: 1. Findings concerning for discitis with loss of vertebral body height at T2-3. There is also disciti s suggested at T5-6. Epidural abscesses are seen at these levels, with most marked findings at T2-3 w here there is fairly significant, posterior displacement of the cord. 2. Significant, bilateral pleural effusions suspected. Signer Name: Álvaro Broderick MD, III Signed: 07/18/2019 11:33 AM Workstation Name: [id number]
--- NOTE | 2019-07-18 12:12 | Progress Note ---
Assessment and Plan Cultures: 07/11/19 blood cultures - MSSA 07/13/19 blood cultures - MSSA 07/15/2019 blood culture: no growth 07/11 UCx no growth A/P: 63 yo M PMhx lumbago admitted for bilateral ulcerative rash 1. Sepsis: likely secondary to MSSA bacteremia 2. Bilateral LE rash - unclear etiology. CRP 16. He reports drainage and fevers, Normal WBC. Consider obtaining a skin biopsy or dermatology consult. No clear exposures leading to rash. Art US no PVD. Venous US no DVT. VIKY negative, C3/C4 WNL. Hepatitis serologies negative. 3. Thoracic spine discitis, osteomyelitis and epidural abscess: noted on MRI. Currently no focal deficits, able to walk with walker, control his bladder and bowel. Needs urgent neurosurgery eval. 4. MSSA bacteremia - TTE unremarkable for endocarditis. Repeat blood cultures cleared on 07/15/2019. Recs: - thoracic spine discitis, osteomyelitis and epidural abscess: noted on MRI. Needs urgent neurosurgery eval. - continue IV Cefazolin 2g q8h D/W Dr. Leach and patient's RN. Ilda Spann MD, FACP [facility], [facility] C: [phone] O: [phone] F: [phone] Subjective Date of service: 07/18/19 Principal diagnosis: SIRS, MSSA bacteremia, bilateral LE rash and ulcer Interval history: No fever. Back pain +, stable. No nausea, vomiting or diarrhea. no new rash except b/l LE. No leg weakness or bowel / bladder issues. Objective - Exam Narrative Exam: Physical Exam: Constitutional: Alert, cooperative. No acute distress Head, Ears, Nose: Normocephalic, atraumatic. External ears, nose normal Eyes: Conjunctivae/corneas clear. No icterus. No ptosis. Neck: Supple, no meningeal signs Cardiovascular: S1, S2 normal. Respiratory: Good air entry, clear to auscultation bilaterally GI: Soft, non-tender; bowel sounds normal. No peritoneal signs Musculoskeletal: No pedal edema, no cyanosis. Skin: b/l LE purpuric rash Hem/Lymphatic: No palpable cervical or supraclavicular nodes. No lymphangitis Psych: Mood ok. Affect normal Neurological: Awake, alert, oriented. No gross abnormality. Able to ambulate, control is bowel and bladder - Constitutional Vitals: Vital Signs Temp Pulse Resp BP Pulse Ox 97.5 F L 73 20 138/82 95 07/18/19 05:10 07/17/19 21:16 07/18/19 05:10 07/18/19 05:10 07/17/19 21:16 Temperature -Last 24 Hours Temperature 97.5 F Temperature 97.5 F Temperature 98.3 F Temperature 98.3 F - Labs CBC & Chem 7: 07/18/19 04:38 07/18/19 04:38 Labs: Abnormal lab results 07/18/19 07/18/19 Range/Units 04:38 04:38 RBC 3.06 L (3.65-5.03) M/mm3 Hgb 9.0 L (11.8-15.2) gm/dl Hct 26.6 L (35.5-45.6) % Plt Count 535 H (140-440) K/mm3 Sodium 136 L (137-145) mmol/L Potassium 3.3 L (3.6-5.0) mmol/L BUN 8 L (9-20) mg/dL Creatinine 0.6 L (0.8-1.5) mg/dL Glucose 101 H (75-100) mg/dL Calcium 7.4 L (8.4-10.2) mg/dL Total Protein 5.4 L (6.3-8.2) g/dL Albumin 2.3 L (3.9-5) g/dL
[2019-07-18] MEDS: DELTASONE PO SCH (12:54)
[2019-07-18] MEDS: PROTONIX PO SCH (12:55)
[2019-07-18 17:55] VITALS: BP 134/79
--- NOTE | 2019-07-18 19:04 | Discharge Summary ---
Providers - Providers Date of Admission: 07/11/19 09:52 Date of discharge: 07/18/19 Attending physician: CHUYITA HERNÁNDEZ 07/11/19 13:28 Consult to Wound/ET Nurse [CONS] Routine Reason For Exam: wound eval 07/11/19 20:42 Consult to Physician [CONS] Routine Comment: Consulting Provider: JENARO FIELDS Physician Instructions: Reason For Exam: Fever/rash 07/13/19 08:33 Physical Therapy Evaluation and Treat [CONS] Routine Comment: Reason For Exam: back pain ,gen debility Primary care physician: C[facility] Hospitalization Reason for admission: weakness in both lower extremities, low back pain Condition: Fair Pertinent studies: Doppler lower extremities showed no evidence of DVT MRI of the lumbar and thoracic spine showed epidural abscess at T2-T3 and T5-T6 levels. There is a posterior displacement of T2 -T3 level Chest x-ray was unremarkable Procedures: none Hospital course: 63-year-old male patient with significant past medical history of chronic low back pain not on any medications presented to the emergency room with history of low back pain. Pain, generalized rash mainly in the lower extremity for the last 2 weeks. Patient also complains intermittent fevers Patient took some [id number] medications with no response Patient denies any chest pain or shortness of breath, Denies headache or dizziness. Complaints of mild cough and congestion No urinary symptoms, Pain in the Lower extremities , venous Doppler negative for DVT. Patient ambulance with a walker because of weakness of extremities especially left lower extremity. Patient denies any history of alcohol, IV drug abuse or tobacco use. Has rashes in the lower extremities with the left more than the right. These are macular rashes with multiple infected sites. On admission blood culture was obtained. Result was remarkable for MSSA. Patient remained afebrile with no leukocytosis. 07/11/19 blood cultures - MSSA 07/13/19 blood cultures - MSSA 07/11 UCx no growth ID consult was obtained. Patient was commenced on cefazolin. Wound care was continued. Patient has having difficulty in ambulating from weakness of both LEs. MRI of the lumbar, thoracic spines were done. Report was remarkable for e pidural abscess at T2 to T3 and T5 to T6 levels. There was evidence of posterior displacement of the cord. From the [place] MRA, osteomyelitis of the sacrum and iliac joint were identified. Neurosurgical services was desired. A call was therefore placed to [facility] for drainage of epidural abscess and continuation of iv antibiotic. Discussed with Dr. Holden Bob, Neurosurgeon at [place], who accepted the patient. Presents is therefore being transferred to [facility]. Disposition: [id number] ANOTHER TYPE HLTHCARE Time spent for discharge: 40 min - Discharge Diagnoses (1) Epidural abscess Status: Acute (2) Sacral osteomyelitis Status: Acute (3) Osteomyelitis of vertebra, sacral and sacrococcygeal region Status: Acute (4) Discitis Status: Acute Core Measure Documentation - Palliative Care Palliative Care/ Comfort Measures: Not Applicable - Core Measures Any of the following diagnoses?: none Exam - Physical Exam Narrative exam: Constitutional: Well-nourished well-developed. In no distress Head: Normocephalic atraumatic Eyes: Pupils are equal round and reactive to light Nose: No enlarged turbinates, no septal deviation. Mouth: Moist mucous membranes. Neck: Supple no thyromegaly. No bruit. No JVD Heart: Regular rate and rhythm, S1-S2 normal. No rubs murmurs or gallop Lungs: Clear to auscultation bilaterally. no rales or rhonchi Abdomen: Soft, nontender. Bowel sound are present. Extremities: Dry dressing of both lower extremities, Neuro: Alert oriented Oriented x3. Weakness in the lower extremities with strength of 3-4/5. The left worse than right Skin: rashes in both lower extremities with minimal skin infection Musculoskeletal system: No joint pain or swelling Hematological: No petechia or subcutanous hemorrhages. Immunological: No multiple septic spots on the skin Lymphatic: No generalized lymphadenopathy Psychiatry: Euthymic. Calm. - Constitutional Vitals: Temp Pulse Resp BP Pulse Ox 99.2 F 77 20 134/79 96 07/18/19 16:43 07/18/19 16:43 07/18/19 16:43 07/18/19 16:43 07/18/19 16:43 Plan Activity: fall precautions Weight Bearing Status: Non-Weight Bearing Diet: regular Follow up with: PRIMARY CAREMD [Primary Care Provider] - 3-5 Days WISMA ISRAEL MD [Staff Physician] - 7 Days Prescriptions: Sulfamethoxazole/Trimethoprim [Bactrim DS TAB] 1 each PO BID #20 tablet diphenhydrAMINE [Benadryl CAP] 25 mg PO Q8H PRN #20 capsule PRN Reason: Itching predniSONE [Deltasone] 10 mg PO QDAY #7 tab
== END 2019-07-18 20:40 | disposition short-term general hospital (02) | DRG 871 ==
LOC: ED 04:55 → 3A 09:52
PROVIDERS: ADMIT Internal Medicine; ATTEND Family Medicine
DX: A41.01 Sepsis due to Methicillin susceptible Staphylococcus aureus (principal); G06.1 Intraspinal abscess and granuloma; E43 Unspecified severe protein-calorie malnutrition; E87.1 Hypo-osmolality and hyponatremia; M46.28 Osteomyelitis of vertebra, sacral and sacrococcygeal region; R21 Rash and other nonspecific skin eruption; I77.6 Arteritis, unspecified; M46.44 Discitis, unspecified, thoracic region; E87.6 Hypokalemia; G89.4 Chronic pain syndrome; F17.200 Nicotine dependence, unspecified, uncomplicated; Z68.20 Body mass index [BMI] 20.0-20.9, adult; Z90.49 Acquired absence of other specified parts of digestive tract; Z82.49 Family history of ischemic heart disease and other diseases of the circulatory system
CPT/HCPCS: 36415; 71045; 72157; 72158; 80048; 80053; 80074; 80076; 81001; 82140; 82271; 82550; 82553; 82570; 83735; 83935; 84300; 84443; 84484; 84550; 85025; 85610; 85652; 85730; 86021; 86038; 86140; 86160; 87040; 87076; 87086; 87186; 93005; 93010; 93306; 93925; 93970; 96365; 96375; 99406; G0378; A9577; J0690; J1650; J2270; J2920; J2930; J3370; J7030; J7040; J7050; J7512